=== PATIENT | female | born 1975 | race Caucasian/White ===

== ENCOUNTER 2017-01-02 17:33 | Emergency (ER) | payer SELFPAY ==
[2017-01-02 17:44] VITALS: BP 161/102
== END 2017-01-02 18:28 | disposition home or self-care (01) ==
LOC: ER 17:33
DX: L03.116 Cellulitis of left lower limb (principal); M79.605 Pain in left leg
CPT/HCPCS: 99284

== ENCOUNTER → 2017-06-02 | Outpatient (CLI) | payer BC ==
--- NOTE | 2017-06-02 16:16 | WOMENS IMAGING REPORT ---
EXAM DESCRIPTION: BILAT SCREENING MAMMO W/CAD COMPLETED DATE/TIME: 06/02/2017 2:47 pm REASON FOR STUDY: ROUTINE SCREENING; Z12.31 Z12.31 ENCNTR SCREEN MAMMOGRAM FOR MALIGNANT NEOPLASM O F ELIANA COMPARISON: None. TECHNIQUE: Standard craniocaudal and mediolateral oblique views of each breast recorded using [employer] acquisition. LIMITATIONS: None. FINDINGS: Findings present which are benign by mammographic criteria. No suspicious masses, calcifi cations or architectural distortion. Pertinent benign findings: Benign calcifications. Read with the assistance of CAD. .[facility] - R2 Cenova Version 1.3 .[facility] Imaging - R2 Cenova Version 1.3 .[facility] Imaging - R2 Cenova Version 2.4 .[facility] - R2 Cenova Version 2.4 .[facility] - R2 [employer] Version 9.2 Benign mammographic findings may include one or more of the following: Smooth masses, popcorn/rim/co arse calcifications, asymmetries, post-procedure changes, and lesions with long-standing stability. IMPRESSION: BENIGN MAMMOGRAPHIC FINDINGS. BIRADS 2 BREAST DENSITY: a. The breasts are almost entirely fatty. BIRAD: 2 BENIGN FINDING(S) RECOMMENDATION: ROUTINE SCREENING COMMENT: The patient has been notified of the results by letter per SA requirements. Additional no tification policies are in place for contacting patient with suspicious or incomplete findings. Quality ID #[id number]: The [employer] recommends an annual screening mammogram for women aged 40 years or over. This facility utilizes a reminder system to ensure that all patients receive reminder letters, and/or direct phone calls for appointments. This includes reminders for routine scr eening mammograms, diagnostic mammograms, or other Breast Imaging Interventions when appropriate. Th is patient will be placed in the appropriate reminder system. The [employer] (ACR) has developed recommendations for screening MRI of the breast s in certain patient populations, to be used in conjunction with mammography. Breast MRI surveillanc e may be appropriate for women with more than 20% lifetime risk of developing breast cancer as deter mined by genetic testing, significant family history of the disease, or history of mantle radiation f or Hodgkins Disease. ACR Practice Guidelines 2008. TECHNICAL DOCUMENTATION: FINDING NUMBER: (1) ASSESSMENT: (1) JOB ID: [id number] [email or web address]- All Rights Reserved
== END ==
LOC: WI 14:24
PROVIDERS: ATTEND Nurse Practitioner Family
DX: Z12.31 Encounter for screening mammogram for malignant neoplasm of breast (principal)
CPT/HCPCS: 77067

== ENCOUNTER 2017-06-06 20:31 | Emergency (ER) | payer BC ==
--- NOTE | 2017-06-06 21:18 | ER Document Report ---
ED General - General Chief Complaint: Flank Pain and back pain Stated Complaint: FLANK PAIN Time Seen by Provider: 06/06/17 21:17 Notes: Patient is a 41-year-old female who presents emergency department with a chief complaint of left flank pain with associated left lower quadrant pain. Patient states that this was sudden onset this afternoon described as a sharp stabbing pain that is constant states that she there are no alleviating factors or positions. She denies any urinary urgency, retention, pyuria, hematuria. She denies any urinary frequency. States that her last bowel movement was today and had one yesterday. Denies any constipation or diarrhea. She denies any bright red blood per rectum or dark tarry stools. She denies any vomiting but admits to intermittent nausea. She denies any previous symptoms like this in the past. Denies any history of kidney stones or family history of kidney stones or diverticulitis. Denies any fevers or chills. Denies any allergies Past medical history significant for diabetes on metformin and Lantus, hypertension on Lopressor, Lasix and aspirin. Past surgical history significant for previous hysterectomy Social history denies any tobacco, alcohol or drug use. 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 primary care is with [facility] in [place] TRAVEL OUTSIDE OF THE [place] IN LAST 30 DAYS: No - Related Data Allergies/Adverse Reactions: No Known Allergies Allergy (Verified 06/07/17 01:36) Past Medical History - Social History Smoking Status: Unknown if Ever Smoked Family History: CAD, DM, Hypertension, Other - No family history of aneurysms - Past Medical History Cardiac Medical History: Reports: Hx Hypertension Neurological Medical History: Reports: Hx Migraine - 5 years, Hx Seizures. Denies: Hx Cerebrovascular Accident Endocrine Medical History: Reports: Hx Diabetes Mellitus Type 2 Renal/ Medical History: Denies: Hx Peritoneal Dialysis Past Surgical History: Reports: Hx Hysterectomy - Immunizations Hx Diphtheria, Pertussis, Tetanus Vaccination: Yes Hx Pneumococcal Vaccination: 05/09/14 Review of Systems - Review of Systems Constitutional: No symptoms reported Cardiovascular: No symptoms reported Respiratory: No symptoms reported Gastrointestinal: See HPI Genitourinary: See HPI Female Genitourinary: No symptoms reported Musculoskeletal: No symptoms reported -: Yes All other systems reviewed and negative Physical Exam - Vital signs Vitals: Temp Pulse Resp BP Pulse Ox 97.8 F 63 20 147/98 H 97 06/06/17 20:45 06/06/17 20:45 06/06/17 20:45 06/06/17 20:45 06/06/17 20:45 - Notes Notes: PHYSICAL EXAM GENERAL: Alert, interacts well. HEAD: Normocephalic, atraumatic. LUNGS: Clear to auscultation bilaterally, no wheezes, rales, or rhonchi. No respiratory distress. HEART: Regular rate and rhythm. No murmurs, gallops, or rubs. ABDOMEN: Soft, nondistended, moderate tenderness to palpation of the left lower quadrant. No guarding, rebound, or rigidity.. Bowel sounds present in all 4 quadrants. EXTREMITIES: Moves all 4 extremities spontaneously. No edema, radial and dorsalis pedis pulses 2/4 bilaterally. No cyanosis. NEUROLOGICAL: Alert and oriented x4. Normal speech. PSYCH: Normal affect, normal mood. SKIN: Warm, dry, normal turgor. No rashes or lesions noted. Course - Re-evaluation Re-evalutation: 06/06/17 22:34 Patient is a 5-year-old female who is hemodynamically stable, no acute distress and afebrile. CBC stable without evidence of leukocytosis or anemia. Chemistry stable without evidence of electrolyte abnormalities, elevated LFTs, acute renal failure. Urinalysis stable without evidence of hematuria, UTI. Repeat abdominal exams with left lower quadrant tenderness. Will send for CT abdomen and pelvis with IV contrast 06/07/17 02:42 Transvaginal ultrasound does show evidence of follicular cyst in the left ovary. Discussed results with patient stating that this did not require surgery at this time will discharge home with pain medication and to follow-up with [facility]. Patient given strict return precautions and otherwise stable for discharge home. - Vital Signs Vital signs: Temp Pulse Resp BP Pulse Ox 98.5 F 61 18 128/88 H 97 06/07/17 03:03 06/07/17 03:03 06/07/17 03:03 06/07/17 03:03 06/07/17 03:03 - Laboratory Result Diagrams: 06/06/17 21:30 06/06/17 21:30 Laboratory results interpreted by me: 06/06/17 06/06/17 21:30 21:35 Sodium 135.4 L Glucose 257 H Total Protein 6.2 L Urine Glucose (UA) >=500 H - Diagnostic Test Radiology reviewed: Image reviewed, Reports reviewed Discharge - Discharge Clinical Impression: Ovarian cyst Qualifiers: Laterality: left Qualified Code(s): N83.202 - Unspecified ovarian cyst, left side Condition: Good Disposition: HOME, SELF-CARE Instructions: Use of [id number]-[id number] Ibuprofen ([facility]), Ovarian Cyst ([facility]) Referrals: MAMADOU BARBOSA MD [ACTIVE STAFF] - Follow up as needed
[2017-06-06 21:38] LABS: ABSOLUTE BASOPHILS # (AUTO) 0.1 10^3/uL (0.0-0.2); ABSOLUTE EOSINOPHILS # (AUTO) 0.1 10^3/uL (0.0-0.6); ABSOLUTE LYMPHOCYTES (AUTO) 2.8 10^3/uL (0.5-4.7); ABSOLUTE MONOCYTES (AUTO) 0.7 10^3/uL (0.1-1.4); ABSOLUTE NEUT (AUTO) 6.5 10^3/uL (1.7-8.2); BASOPHILS % (AUTO) 0.8 % (0-2); HEMATOCRIT 42.1 % (36.0-47.0); HEMOGLOBIN 14.8 g/dL (12.0-15.5); LYMPHOCYTES % (AUTO) 27.8 % (13-45); MEAN CORPUSCULAR HEMOGLOBIN 30.8 pg (27.0-33.4); MEAN CORPUSCULAR HGB CONC 35.1 g/dL (32.0-36.0); MEAN CORPUSCULAR VOLUME 88 fl (80-97); MONOCYTES % (AUTO) 6.6 % (3-13); PLATELET COUNT 230 10^3/uL (150-450); RED CELL DISTRIBUTION WIDTH 13.1 % (11.5-14.0); SEGMENTED NEUTROPHILS % (AUTO) 63.8 % (42-78); TOTAL CELLS COUNTED % (AUTO) 100 %; WHITE BLOOD COUNT 10.2 10^3/uL (4.0-10.5)
[2017-06-06] MEDS ORDERED: MORPHINE SULFATE 10 MG/ML INJ IV ONE (21:51)
[2017-06-06 21:52] LABS: APPEARANCE,URINE SLIGHTLY-CLOUDY; BILIRUBIN,URINE NEGATIVE (NEGATIVE); COLOR,URINE YELLOW; GLUCOSE, URINE >=500 mg/dL (NEGATIVE); KETONES,URINE NEGATIVE (NEGATIVE); LEUKOCYTE ESTERASE,URINE NEGATIVE (NEGATIVE); NITRITE,URINE NEGATIVE (NEGATIVE); PROTEIN,URINE NEGATIVE (NEGATIVE); URINE SPECIFIC GRAVITY 1.024; UROBILINOGEN,URINE NEGATIVE mg/dL (<2.0)
[2017-06-06 21:57] LABS: ALANINE AMINOTRANSFERASE 28 U/L (9-52); ALBUMIN 3.8 g/dL (3.5-5.0); ALKALINE PHOSPHATASE 95 U/L (38-126); ANION GAP 7 (5-19); ASPARTATE AMINO TRANSFERASE 15 U/L (14-36); BILIRUBIN,DIRECT 0.2 mg/dL (0.0-0.4); BILIRUBIN,TOTAL 0.4 mg/dL (0.2-1.3); BLOOD UREA NITROGEN 13 mg/dL (7-20); CARBON DIOXIDE 29 mmol/L (22-30); CHLORIDE 99 mmol/L (98-107); GLUCOSE 257 mg/dL (75-110); POTASSIUM 4.2 mmol/L (3.6-5.0); SODIUM 135.4 mmol/L (137-145); TOTAL PROTEIN 6.2 g/dL (6.3-8.2)
[2017-06-06] MEDS ORDERED: KETOROLAC TROMETHAMINE INJ/PF 30 MG/1 ML SDV IV ONE (22:30)
--- NOTE | 2017-06-06 23:32 | RADIOLOGY REPORT (SQ) ---
EXAM DESCRIPTION: CT ABD/PELVIS WITH IV ONLY CLINICAL HISTORY: 41 years Female, LLQ pain COMPARISON: None. TECHNIQUE: 100 mL Isovue-370 IV contrast. Coronal and sagittal reformat. This exam was performed according to our departmental dose-optimization program, which includes automated exposure control, adjustment of the mA and/or kV according to patient size and/or use of iterative reconstruction technique. FINDINGS: No acute findings. No ascites. Moderate hepatic steatosis. Nonspecific prominence of retroperitoneal lymph nodes. Mild subcutaneous soft tissue edema. Mild disc desiccation of the lower thoracic spine. Inferior thorax, gallbladder, pancreas, spleen, adrenals, renal system, gastrointestinal tract, pelvic organs, vasculature, and musculoskeleton appear otherwise unremarkable. IMPRESSION: No acute findings.
[2017-06-07] MEDS ORDERED: MORPHINE SULFATE 10 MG/ML INJ IV ONE ×2 (00:22→01:05)
[2017-06-07 00:57] LABS: RBCS (WET MOUNT) RARE RBCS SEEN; T.VAGINALIS (WET MOUNT) NO TRICHOMONAS SEEN; WBCS (WET MOUNT) 1+ WBCS SEEN; YEAST (WET MOUNT) NO YEAST SEEN
[2017-06-07 02:04] LABS: CHLAM PCR NOT DETECTED (NOT DETECT); GON PCR NOT DETECTED (NOT DETECT)
[2017-06-07] MEDS ORDERED: TRAMADOL HCL 50 MG TABLET PO ONE (02:10)
--- NOTE | 2017-06-07 02:21 | RADIOLOGY REPORT (SQ) ---
EXAM DESCRIPTION: U/S NON OB PEL TV W/DOPPLER CLINICAL HISTORY: 41 years, Female, left pelvic pain COMPARISON: None. TECHNIQUE: Transvaginal. LIMITATIONS: Body habitus. FINDINGS: 3 x 2.5 x 3 cm left ovary appears within normal limits; venous flow and trace arterial flow demonstrated. The left ovary contains a 2.5 x 2.2 x 1.5 cm dominant cystic follicle for which no follow-up imaging is recommended. Uterus is surgically absent. Right ovary is not visualized. No free fluid. IMPRESSION: No acute findings. Hysterectomy. Right ovary is not visualized.
[2017-06-07] MEDS ORDERED: HYDROCODONE/ACETAMINOPHEN 5-325 MG (6 TAB/ER DISP) PO PRN (02:54)
[2017-06-07 03:08] VITALS: BP 128/88
== END 2017-06-07 03:05 | disposition home or self-care (01) ==
LOC: ER 20:31
DX: N83.202 Unspecified ovarian cyst, left side (principal); M54.9 Dorsalgia, unspecified; R10.32 Left lower quadrant pain; R11.0 Nausea
CPT/HCPCS: 96376; 99284; 96374; 96375; 36415; 87210; 83690; 84703; 85025; 80053; 81001; 87491; 87591; 76830; 93976; 74177; J1885; J2270 ×2

== ENCOUNTER 2017-09-12 22:41 | Emergency (ER) | payer SELFPAY ==
[2017-09-12 22:54] VITALS: BP 168/111
--- NOTE | 2017-09-13 00:19 | ER Document Report ---
HPI - HPI Pain Level: 5 Notes: Patient is a 41-year-old female with a history of hypertension and diabetes who presents to the ED complaining of left lower back pain 1-2 days. Patient is not aware of any injury or precipitating event. Patient states that the pain does not radiate. Patient states that it worsens with sitting or standing for prolonged periods or twisting motions of the trunk. Patient states that she has chronic lower leg pains near her ankles anteriorly when her edema starts to act up on her. She does not have any new leg pains aside from normal. Patient does take Lasix daily. She is eating and drinking without any difficulties. She is urinating normally and having normal bowel movements. She has not had any surgeries or procedures to her lower back. She denies any smoking or IV drug use. Denies any headache, fever, URI, sore throat, chest pain, palpitations, syncope, cough, shortness of breath, wheeze, dyspnea, abdominal pain, nausea/vomiting/diarrhea, urinary retention, dysuria, hematuria, loss of control of bowel or bladder, numbness/tingling, saddle anesthesia, muscle paralysis/weakness, or rash. No prolonged immobilization, hormone use, prev dvt /pe, recent surgery/trauma. - ROS Systems Reviewed and Negative: Yes All other systems reviewed and negative - REPRODUCTIVE Reproductive: DENIES: : Past Medical History - Social History Smoking Status: Never Smoker Family History: CAD, DM, Hypertension, Other - No family history of aneurysms - Past Medical History Cardiac Medical History: Reports: Hx Hypertension Neurological Medical History: Reports: Hx Migraine - 5 years, Hx Seizures. Denies: Hx Cerebrovascular Accident Endocrine Medical History: Reports: Hx Diabetes Mellitus Type 2 Renal/ Medical History: Denies: Hx Peritoneal Dialysis Past Surgical History: Reports: Hx Hysterectomy - Immunizations Hx Diphtheria, Pertussis, Tetanus Vaccination: Yes Hx Pneumococcal Vaccination: 05/09/14 Vertical Provider Document - CONSTITUTIONAL Agree With Documented VS: Yes Notes: PHYSICAL EXAMINATION: GENERAL: Well-appearing, well-nourished and in no acute distress. Morbid obesity. LUNGS: Breath sounds clear to auscultation bilaterally and equal. No wheezes rales or rhonchi. HEART: Regular rate and rhythm without murmurs, rubs, gallops. ABDOMEN: Soft, nontender, nondistended abdomen. No guarding, no rebound. No masses appreciated. Normal bowel sounds present. No CVA tenderness bilaterally. No pulsatile mass Musculoskeletal: LE's b/l: FROM to passive/active. Strength 5+/5. No deficits noted. No bony tenderness of extremities. Back: FROM to passive/active. Strength 5+/5. No vertebral point tenderness, stepoffs, or deformities. No other bony tenderness, erythema, swelling, or ecchymosis. SLR negative b/l. + mild tenderness to the L-paraspinal mm left. Mild spasming. + left SI jt tenderness. No foot drop Extremities: 2+ pitting edema from ankles to 1+ proximally to the inferior knee area b/l. Peripheral pulses 2+. Capillary refill less than 2 seconds. No calf tenderness or asymmetry of the legs. NEUROLOGICAL: Normal speech, ataxic gait. Normal sensory, motor exams. Reflexes 2+ b/l. PSYCH: Normal mood, normal affect. SKIN: Warm, Dry, normal turgor, no rashes or lesions noted. - INFECTION CONTROL TRAVEL OUTSIDE OF THE [place] IN LAST 30 DAYS: No Course - Re-evaluation Re-evalutation: 09/13/17 01:33 Due to technical difficulties with the radiologist department, patient does not want to wait for her imaging results. Patient would like to call back tomorrow for her results. I did review the risk and benefit of her leaving prior to her imaging results. Patient verbalized understanding and still wants to leave prior to the results. Patient is an afebrile, well-hydrated, 41-year-old female who presents to the ED with left lower back pain, suspect back strain. Vitals are acceptable. PE is otherwise unremarkable for any focal neurological deficits, neurovascular compromise, obvious tendon/ligament rupture, obvious fracture/dislocation. Patient has no tachycardia, tachypnea, or hypoxia. She has no red flag symptoms at this time. Toradol and Tylenol given today. I will send her home with a prescription for naproxen and baclofen. Conservative measures otherwise for symptoms. Recheck with your PCM in 2-3 days. Consider consult orthopedic/ physical therapy. Return to the ED with any worsening/concerning symptoms otherwise as reviewed discharge. Patient is in agreement. - Vital Signs Vital signs: Temp Pulse Resp BP Pulse Ox 98.3 F 78 18 168/111 H 99 09/12/17 22:52 09/12/17 22:52 09/12/17 22:52 09/12/17 22:52 09/12/17 22:52 Discharge - Discharge Clinical Impression: Low back pain Qualifiers: Chronicity: acute Back pain laterality: left Sciatica presence: without sciatica Qualified Code(s): M54.5 - Low back pain Condition: Stable Disposition: HOME, SELF-CARE Instructions: Low Back Pain ([facility]), Stretching Exercises for the Back ([facility]) Additional Instructions: Call tomorrow after 2pm for your imaging results. Rest, Ice, Compression, Elevation Tylenol/ibuprofen as needed Light stretches daily Strength exercises as able Moist heat and massage may help F/u with your PCP in 3-5 days for a recheck Consider consult(s) with Orthopedics/physical therapy for ongoing/worsening symptoms Return to the ED with any worsening symptoms and/or development of fever, headache, chest pain, palpitations, syncope, shortness of breath, trouble breathing, abdominal pain, n/v/d, blood in stool/urine, loss of control of bowel /bladder, urinary retention, muscle weakness/paralysis, saddle anesthesia, numbness/tingling, or other worsening symptoms that are concerning to you. Prescriptions: Baclofen [Baclofen 10 mg Tablet] 5 - 10 mg PO BID PRN #10 tablet PRN Reason: Naproxen 500 mg PO BID PRN #20 tablet PRN Reason: Forms: Elevated Blood Pressure Referrals: CLAIR COELHO PA-C [Primary Care Provider] - 09/16/17 [facility] [Provider Group] - Follow up as needed
[2017-09-13] MEDS: KETOROLAC TROMETHAMINE INJ/PF 30 MG/1 ML SDV IM ONE (00:21)
[2017-09-13] MEDS ORDERED: ACETAMINOPHEN 325 MG TABLET PO ONE (00:43)
--- NOTE | 2017-09-13 04:20 | RADIOLOGY REPORT (SQ) ---
EXAM DESCRIPTION: L SPINE WHOLE COMPLETED DATE/TIME: 09/13/2017 12:54 am REASON FOR STUDY: low back pain, left COMPARISON: None. NUMBER OF VIEWS: Five views including obliques. TECHNIQUE: AP, lateral, oblique, and sacral radiographic images acquired of the lumbar spine. LIMITATIONS: None. FINDINGS: MINERALIZATION: Normal. SEGMENTATION: Normal. No transitional anatomy. ALIGNMENT: Normal. VERTEBRAE: Maintained height. No fracture or worrisome bone lesion. DISCS: Minimal degenerative changes. No disc space narrowing. POSTERIOR ELEMENTS: Pedicles and facets are intact. No pars defect or posterior arch defects. HARDWARE: None in the spine. PARASPINAL SOFT TISSUES: Normal. PELVIS: Intact as visualized. No fractures or worrisome bone lesions. SI joints intact. OTHER: No other significant finding. IMPRESSION: No significant finding. TECHNICAL DOCUMENTATION: JOB ID: [id number] [employer]- All Rights Reserved Reading location - IP/workstation name: [email or web address]
== END 2017-09-13 01:43 | disposition home or self-care (01) ==
LOC: ER 22:41
DX: M54.5 Low back pain (principal); R25.2 Cramp and spasm; R60.0 Localized edema; I10 Essential (primary) hypertension; E11.9 Type 2 diabetes mellitus without complications; Z79.899 Other long term (current) drug therapy
CPT/HCPCS: 99283; 96372; 72110; J1885

== ENCOUNTER 2017-10-03 23:18 | Emergency (ER) | payer BC ==
[2017-10-04 00:44] VITALS: BP 184/126
[2017-10-04] MEDS ORDERED: PROMETHAZINE HCL 25 MG TABLET PO ONE (01:05)
[2017-10-04] MEDS ORDERED: MORPHINE SULFATE IR 15 MG TABLET PO ONE (01:05)
--- NOTE | 2017-10-04 01:06 | ER Document Report ---
ED GI/ - General Chief Complaint: Abdominal Pain Stated Complaint: SIDE PAIN Time Seen by Provider: 10/04/17 00:57 Notes: Patient is a 41-year-old female comes emergency department for chief complaint of abdominal pain, she states that she feels like start in her mid to lower back and then wrap around to the front of her abdomen and the lower part of her abdomen. This is worse on the left. She denies nausea or vomiting, fever or chills, had a normal bowel movement today, denies vaginal bleeding or discharge. She has had a partial hysterectomy. She denies any other surgeries. Past medical history of hypertension, insulin-dependent diabetes, anxiety, chronic back pain, chronic lower extremity edema, obesity. TRAVEL OUTSIDE OF THE [place] IN LAST 30 DAYS: No - Related Data Allergies/Adverse Reactions: No Known Allergies Allergy (Verified 06/07/17 01:36) Past Medical History - General Information source: Patient, Relative - Social History Smoking Status: Never Smoker Frequency of alcohol use: None Drug Abuse: None Lives with: Family Family History: CAD, DM, Hypertension, Other - No family history of aneurysms - Past Medical History Cardiac Medical History: Reports: Hx Hypertension Neurological Medical History: Reports: Hx Migraine - 5 years, Hx Seizures. Denies: Hx Cerebrovascular Accident Endocrine Medical History: Reports: Hx Diabetes Mellitus Type 2 Renal/ Medical History: Denies: Hx Peritoneal Dialysis Past Surgical History: Reports: Hx Hysterectomy - Immunizations Hx Diphtheria, Pertussis, Tetanus Vaccination: Yes Hx Pneumococcal Vaccination: 05/09/14 Review of Systems - Review of Systems Constitutional: No symptoms reported EENT: No symptoms reported Cardiovascular: No symptoms reported Respiratory: No symptoms reported Gastrointestinal: See HPI Genitourinary: No symptoms reported Female Genitourinary: No symptoms reported Musculoskeletal: See HPI Skin: No symptoms reported Hematologic/Lymphatic: No symptoms reported Neurological/Psychological: No symptoms reported Physical Exam - Vital signs Vitals: BP 184/126 H 10/04/17 00:40 - Notes Notes: GENERAL: Alert, interacts well. No acute distress. HEAD: Normocephalic, atraumatic. EYES: Pupils equal, round, and reactive to light. Extraocular movements intact. ENT: Oral mucosa moist, tongue midline. NECK: Full range of motion. Supple. Trachea midline. LUNGS: Clear to auscultation bilaterally, no wheezes, rales, or rhonchi. No respiratory distress. HEART: Regular rate and rhythm. No murmur ABDOMEN: Mildly distended abdomen. Mild generalized tenderness, nonspecific, no guarding, no rebound tenderness EXTREMITIES: Moves all 4 extremities spontaneously. No edema, normal radial and dorsalis pedis pulses bilaterally. No cyanosis. BACK: no cervical, thoracic, lumbar midline tenderness. No saddle anesthesia, normal distal neurovascular exam. No CVA tenderness. NEUROLOGICAL: Alert and oriented x3. Normal speech. [cranial nerves II through XII grossly intact]. PSYCH: Normal affect, normal mood. SKIN: Warm, dry, normal turgor. No rashes or lesions noted. Course - Re-evaluation Re-evalutation: Patient with generalized abdominal tenderness, no guarding, unremarkable back exam, no neurological deficits, no reported neurological symptoms. Vital signs show hypertension but are otherwise unremarkable. CBC unremarkable, chemistry unremarkable, lipase not elevated, urine shows dehydration but no concerning findings. There is mild hyperglycemia but no acidosis. X-ray with large amount of retained stool per my read, no obstructive findings, no acute findings per radiologist. Patient has recently been taking narcotic pain medications at home for her back. Suspect constipation secondary to this. Based on her laboratory and physical examination I have very low suspicion of acute abdomen at this time. Does not appear to be infectious etiology either. Discussed better monitoring of her blood sugar, blood pressure follow-up with primary, treatment for her abdomen, return precautions in detail. Patient and significant other state understanding and agreement. - Vital Signs Vital signs: Temp Pulse Resp BP Pulse Ox 98.2 F 66 18 176/107 H 99 10/04/17 00:42 10/04/17 00:42 10/04/17 00:42 10/04/17 00:42 10/04/17 00:42 - Laboratory Result Diagrams: 10/04/17 02:30 10/04/17 02:30 Laboratory results interpreted by me: 10/04/17 10/04/17 02:30 02:35 Glucose 254 H AST 11 L Total Protein 6.1 L Urine Glucose (UA) >=500 H Discharge - Discharge Clinical Impression: Abdominal pain Qualifiers: Abdominal location: generalized Qualified Code(s): R10.84 - Generalized abdominal pain Condition: Stable Disposition: HOME, SELF-CARE Additional Instructions: Your workup shows mild dehydration and slightly elevated blood sugars. Increase your hydration and continue your medications for diabetes. Your imaging shows large amount of retained stool with some distention of the colon, this is probably the cause of your discomfort. I recommend that you drink half of the bottle given to you tonight, wait about 4-6 hours and then drinking the other half, if no results begin taking the Colace as directed, increase fiber in your diet, this should result in several large bowel movements and resolution of your pain. Take the Phenergan if needed for nausea , the Bentyl if needed for pain. Follow-up with primary care. Return for any concerning symptoms including vomiting, severe abdominal pain, fever, or any other concerning or worsening symptoms. Prescriptions: Dicyclomine HCl [Bentyl 20 mg Tablet] 20 mg PO QID PRN #20 tablet PRN Reason: Docusate Sodium [Colace 100 mg Capsule] 100 mg PO ASDIR PRN #30 capsule PRN Reason: Promethazine HCl [Phenergan 25 mg Tablet] 1 - 2 tab PO Q6H PRN #15 tablet PRN Reason: Forms: Return to Work, Elevated Blood Pressure Referrals: CLARI COELHO PA-C [Primary Care Provider] - Follow up as needed
[2017-10-04 03:04] LABS: ABSOLUTE EOSINOPHILS # (AUTO) 0.1 10^3/uL (0.0-0.6); ABSOLUTE LYMPHOCYTES (AUTO) 2.5 10^3/uL (0.5-4.7); ABSOLUTE MONOCYTES (AUTO) 0.6 10^3/uL (0.1-1.4); BASOPHILS % (AUTO) 0.2 % (0-2); EOSINOPHILS % (AUTO) 1.8 % (0-6); HEMATOCRIT 43.1 % (36.0-47.0); HEMOGLOBIN 14.8 g/dL (12.0-15.5); LYMPHOCYTES % (AUTO) 34.2 % (13-45); MEAN CORPUSCULAR HEMOGLOBIN 30.3 pg (27.0-33.4); MEAN CORPUSCULAR HGB CONC 34.3 g/dL (32.0-36.0); MEAN CORPUSCULAR VOLUME 88 fl (80-97); MONOCYTES % (AUTO) 8.5 % (3-13); PLATELET COUNT 201 10^3/uL (150-450); RED BLOOD COUNT 4.88 10^6/uL (3.72-5.28); RED CELL DISTRIBUTION WIDTH 13.4 % (11.5-14.0); SEGMENTED NEUTROPHILS % (AUTO) 55.3 % (42-78); TOTAL CELLS COUNTED % (AUTO) 100 %; WHITE BLOOD COUNT 7.3 10^3/uL (4.0-10.5)
[2017-10-04 03:20] LABS: ALANINE AMINOTRANSFERASE 30 U/L (9-52); ALBUMIN 3.5 g/dL (3.5-5.0); ALKALINE PHOSPHATASE 88 U/L (38-126); ANION GAP 10 (5-19); ASPARTATE AMINO TRANSFERASE 11 U/L (14-36); BILIRUBIN,DIRECT 0.3 mg/dL (0.0-0.4); BILIRUBIN,TOTAL 0.3 mg/dL (0.2-1.3); BLOOD UREA NITROGEN 12 mg/dL (7-20); CALCIUM 8.5 mg/dL (8.4-10.2); CARBON DIOXIDE 28 mmol/L (22-30); CHLORIDE 103 mmol/L (98-107); GLUCOSE 254 mg/dL (75-110); POTASSIUM 4.1 mmol/L (3.6-5.0); SODIUM 141.2 mmol/L (137-145); TOTAL PROTEIN 6.1 g/dL (6.3-8.2)
[2017-10-04 03:40] LABS: APPEARANCE,URINE CLEAR; BILIRUBIN,URINE NEGATIVE (NEGATIVE); COLOR,URINE STRAW; GLUCOSE, URINE >=500 mg/dL (NEGATIVE); KETONES,URINE NEGATIVE (NEGATIVE); LEUKOCYTE ESTERASE,URINE NEGATIVE (NEGATIVE); NITRITE,URINE NEGATIVE (NEGATIVE); PROTEIN,URINE NEGATIVE (NEGATIVE); UROBILINOGEN,URINE NEGATIVE mg/dL (<2.0)
--- NOTE | 2017-10-04 03:59 | RADIOLOGY REPORT (SQ) ---
EXAM DESCRIPTION: Acute abdominal series CLINICAL HISTORY: sharp mid abd pain, hx surgery COMPARISON: None. FINDINGS: Single view of the chest with upright and spine views of the abdomen. The cardiomediastinal silhouette has normal size and contour. No consolidation, pneumothorax, or pleural effusion. No definite free intraperitoneal air. Nonobstructive bowel gas pattern. No acute osseous abnormalities. No abnormal calcifications. No definite organomegaly. IMPRESSION: 1. No acute pulmonary process. Nonobstructive bowel gas pattern.
[2017-10-04] MEDS ORDERED: MAGNESIUM CITRATE 296 ML BOTTLE PO ONE (04:10)
== END 2017-10-04 04:30 | disposition home or self-care (01) ==
LOC: ER 23:18
DX: R10.84 Generalized abdominal pain (principal); M54.5 Low back pain; R10.30 Lower abdominal pain, unspecified; E11.9 Type 2 diabetes mellitus without complications; Z79.4 Long term (current) use of insulin; Z90.710 Acquired absence of both cervix and uterus
CPT/HCPCS: 99284; 36415; 83690; 85025; 81025; 80053; 81001; 74022; J3490

== ENCOUNTER 2017-12-29 09:24 | Emergency (ER) | payer BC ==
--- NOTE | 2017-12-29 09:58 | ER Document Report ---
ED Medical Screen (RME) - General Chief Complaint: Cold Symptoms Stated Complaint: COLD Time Seen by Provider: 12/29/17 09:42 Mode of Arrival: Ambulatory Information source: Patient Notes: Patient presents with a multitude of complaints. Patient complains of sore throat pain with ear pain and difficulty breathing. Patient additionally reports left-sided and left flank abdominal pain for the past 5 days. Patient does report constipation symptoms as well and states she took 2 bottles of magnesium citrate without any improvement of her symptoms. Patient does report some intermittent palpitations. Patient states that around 30 minutes ago she started to have complete upper lip numbness and dizziness. Patient states that she has had numbness like this to her lip before, before having a seizure. I have greeted and performed a rapid initial assessment of this patient. A comprehensive ED assessment and evaluation of the patient, analysis of test results and completion of the medical decision making process will be conducted by additional ED providers. TRAVEL OUTSIDE OF THE [place] IN LAST 30 DAYS: No - Related Data Allergies/Adverse Reactions: No Known Allergies Allergy (Verified 12/29/17 09:27) Past Medical History - Social History Chew tobacco use (# tins/day): No Frequency of alcohol use: None Drug Abuse: None - Past Medical History Cardiac Medical History: Reports: Hx Hypertension Neurological Medical History: Reports: Hx Migraine - 5 years, Hx Seizures. Denies: Hx Cerebrovascular Accident Endocrine Medical History: Reports: Hx Diabetes Mellitus Type 2 Renal/ Medical History: Denies: Hx Peritoneal Dialysis Past Surgical History: Reports: Hx Hysterectomy - Immunizations Hx Diphtheria, Pertussis, Tetanus Vaccination: Yes Physical Exam - Vital signs Vitals: Temp Pulse Resp BP Pulse Ox 98.5 F 69 20 178/119 H 99 12/29/17 09:28 12/29/17 09:28 12/29/17 09:28 12/29/17 09:28 12/29/17 09:28 - Respiratory Respiratory status: No respiratory distress Chest status: Nontender Breath sounds: Nonproductive cough Course - Vital Signs Vital signs: Temp Pulse Resp BP Pulse Ox 98.5 F 69 20 178/119 H 99 12/29/17 09:28 12/29/17 09:28 12/29/17 09:28 12/29/17 09:28 12/29/17 09:28 Doctor's Discharge - Discharge Referrals: BUNDLE,CLAIR, PA-C [Primary Care Provider] - Follow up as needed
[2017-12-29] MEDS ORDERED: MECLIZINE HCL 25 MG TABLET PO ONE (10:34)
[2017-12-29 10:50] LABS: MEAN CORPUSCULAR VOLUME 88 fl (80-97)
[2017-12-29 10:59] LABS: ALANINE AMINOTRANSFERASE 40 U/L (9-52); ALBUMIN 3.9 g/dL (3.5-5.0); ALKALINE PHOSPHATASE 92 U/L (38-126); ANION GAP 10 (5-19); ASPARTATE AMINO TRANSFERASE 29 U/L (14-36); BILIRUBIN,DIRECT 0.3 mg/dL (0.0-0.4); BILIRUBIN,TOTAL 0.6 mg/dL (0.2-1.3); BLOOD UREA NITROGEN 14 mg/dL (7-20); CALCIUM 8.9 mg/dL (8.4-10.2); CARBON DIOXIDE 26 mmol/L (22-30); CHLORIDE 105 mmol/L (98-107); GLUCOSE 216 mg/dL (75-110); POTASSIUM 4.6 mmol/L (3.6-5.0); SODIUM 141.4 mmol/L (137-145)
[2017-12-29 11:00] LABS: ABSOLUTE EOSINOPHILS # (AUTO) 0.1 10^3/uL (0.0-0.6); ABSOLUTE LYMPHOCYTES (AUTO) 1.4 10^3/uL (0.5-4.7); ABSOLUTE MONOCYTES (AUTO) 0.5 10^3/uL (0.1-1.4); ABSOLUTE NEUT (AUTO) 4.2 10^3/uL (1.7-8.2); BASOPHILS % (AUTO) 0.6 % (0-2); EOSINOPHILS % (AUTO) 1.1 % (0-6); HEMATOCRIT 42.1 % (36.0-47.0); HEMOGLOBIN 14.6 g/dL (12.0-15.5); LYMPHOCYTES % (AUTO) 22.4 % (13-45); MEAN CORPUSCULAR HEMOGLOBIN 30.3 pg (27.0-33.4); MEAN CORPUSCULAR HGB CONC 34.6 g/dL (32.0-36.0); MONOCYTES % (AUTO) 8.6 % (3-13); PLATELET COUNT 233 10^3/uL (150-450); RED CELL DISTRIBUTION WIDTH 13.4 % (11.5-14.0); SEGMENTED NEUTROPHILS % (AUTO) 67.3 % (42-78); TOTAL CELLS COUNTED % (AUTO) 100 %; WHITE BLOOD COUNT 6.2 10^3/uL (4.0-10.5)
[2017-12-29] MEDS ORDERED: LEVETIRACETAM 500 MG TABLET PO ONE ×2 (11:01→11:17)
[2017-12-29 11:07] LABS: APPEARANCE,URINE CLEAR; BILIRUBIN,URINE NEGATIVE (NEGATIVE); COLOR,URINE YELLOW; GLUCOSE, URINE 50 mg/dL (NEGATIVE); KETONES,URINE NEGATIVE (NEGATIVE); LEUKOCYTE ESTERASE,URINE NEGATIVE (NEGATIVE); NITRITE,URINE NEGATIVE (NEGATIVE); PROTEIN,URINE NEGATIVE (NEGATIVE); UROBILINOGEN,URINE NEGATIVE mg/dL (<2.0)
--- NOTE | 2017-12-29 11:07 | ER Document Report ---
ED General - General Chief Complaint: Cold Symptoms Stated Complaint: COLD Time Seen by Provider: 12/29/17 09:42 Mode of Arrival: Ambulatory TRAVEL OUTSIDE OF THE [place] IN LAST 30 DAYS: No - HPI Patient complains to provider of: Multiple complaints Onset: This morning Onset/Duration: Gradual Quality of pain: Achy Severity: Mild Pain Level: 2 Associated symptoms: Body/muscle aches, Productive cough, Nausea, Sore throat Exacerbated by: Denies Relieved by: Denies Similar symptoms previously: Yes Recently seen / treated by doctor: No Notes: Patient is a 42-year-old female presenting to the emergency room today with multiple complaints including sore throat with cough productive of greenish phlegm, nausea, constipation 5 days with no relief after taking magnesium citrate yesterday, left flank pain, and tingling sensation of her upper lip consistent with warning signs of having a seizure in the past, patient has not been on her seizure medication for at least the past year stating that her neurologist went out of business and she has not found a new one yet, she denies any vomiting, no fevers, no known sick contacts, she has not had a seizure in over a year despite not being on her medications, prior to her developing constipation she did have multiple episodes of loose runny stools, she has been eating well and drinking fluids at her baseline - Related Data Allergies/Adverse Reactions: No Known Allergies Allergy (Verified 12/29/17 09:27) Past Medical History - General Information source: Patient - Social History Smoking Status: Unknown if Ever Smoked Chew tobacco use (# tins/day): No Frequency of alcohol use: None Drug Abuse: None Family History: CAD, DM, Hypertension, Other - No family history of aneurysms Patient has suicidal ideation: No Patient has homicidal ideation: No - Past Medical History Cardiac Medical History: Reports: Hx Hypertension Neurological Medical History: Reports: Hx Migraine - 5 years, Hx Seizures. Denies: Hx Cerebrovascular Accident Endocrine Medical History: Reports: Hx Diabetes Mellitus Type 2 Renal/ Medical History: Denies: Hx Peritoneal Dialysis Past Surgical History: Reports: Hx Hysterectomy - Immunizations Hx Diphtheria, Pertussis, Tetanus Vaccination: Yes Hx Pneumococcal Vaccination: 05/09/14 Review of Systems - Review of Systems Constitutional: No symptoms reported EENT: See HPI Cardiovascular: No symptoms reported Respiratory: No symptoms reported Gastrointestinal: See HPI Genitourinary: No symptoms reported Female Genitourinary: No symptoms reported Musculoskeletal: No symptoms reported Skin: No symptoms reported Hematologic/Lymphatic: No symptoms reported Neurological/Psychological: See HPI -: Yes All other systems reviewed and negative Physical Exam - Vital signs Vitals: Temp Pulse Resp BP Pulse Ox 98.5 F 69 20 178/119 H 99 12/29/17 09:28 12/29/17 09:28 12/29/17 09:28 12/29/17 09:28 12/29/17 09:28 Interpretation: Hypertensive - General General appearance: Appears well, Alert In distress: None - HEENT Head: Normocephalic, Atraumatic Eyes: Normal Conjunctiva: Normal Extraocular movements intact: Yes Pupils: PERRL Pharynx: Erythema. No: Exudate, Tonsillar hypertrophy Neck: Normal - Respiratory Respiratory status: No respiratory distress Chest status: Nontender Breath sounds: Normal Chest palpation: Normal - Cardiovascular Rhythm: Regular Heart sounds: Normal auscultation Murmur: No - Abdominal Inspection: Morbidly Obese Distension: No distension Bowel sounds: Normal Tenderness: Nontender Organomegaly: No organomegaly - Back Back: Normal, Nontender - Extremities General upper extremity: Normal inspection, Nontender, Normal color, Normal ROM , Normal temperature General lower extremity: Nontender, Normal ROM, Normal temperature, Normal weight bearing. No: Danuta's sign Notes: Bilateral lower extremity discoloration consistent with peripheral vascular disease, left greater than right - Neurological Neuro grossly intact: Yes Cognition: Normal Orientation: AAOx4 Leona Coma Scale Eye Opening: Spontaneous [place] Coma Scale Verbal: Oriented [place] Coma Scale Motor: Obeys Commands [place] Coma Scale Total: 15 Speech: Normal Motor strength normal: LUE, RUE, LLE, RLE Sensory: Normal - Psychological Associated symptoms: Normal affect, Normal mood - Skin Skin Temperature: Warm Skin Moisture: Dry Skin Color: Normal Course - Re-evaluation Re-evalutation: 12/29/17 11:36 Patient with symptoms of viral upper respiratory illness, also concerned about seizure predrome, she has been off of her medications for at least the past year secondary to her previous neurologist retiring and she has not yet found another one, she was given a dose of Keppra in the emergency department, she does report feeling much better and ready to be discharged, patient will be discharged with instructions for follow-up and advised to return if symptoms worsen, patient acknowledges understanding and agreement with this plan - Vital Signs Vital signs: Temp Pulse Resp BP Pulse Ox 97.7 F 64 19 147/91 H 97 12/29/17 12:02 12/29/17 12:02 12/29/17 12:02 12/29/17 12:02 12/29/17 12:02 - Laboratory Result Diagrams: 12/29/17 10:29 12/29/17 10:29 Laboratory results interpreted by me: 12/29/17 12/29/17 10:29 10:30 Glucose 216 H Urine Glucose (UA) 50 H - Diagnostic Test Radiology reviewed: Image reviewed, Reports reviewed Discharge - Discharge Clinical Impression: Seizure disorder, Viral upper respiratory illness Constipation Qualifiers: Constipation type: unspecified constipation type Qualified Code(s): K59.00 - Constipation, unspecified Condition: Stable Disposition: HOME, SELF-CARE Instructions: Neurologist, Seizure, 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 Return to the emergency room immediately if symptoms worsen or any additional concerns. Prescriptions: Docusate Sodium [Colace 100 mg Capsule] 100 mg PO BID #60 capsule Levetiracetam [Keppra 500 mg Tablet] 500 mg PO Q12 #60 tablet Polyethylene Glycol 3350 [Miralax Powder 17 Gm/Packet] 17 gm PO DAILY #30 powd.pack Forms: Return to Work Referrals: CLAIR COELHO PA-C [Primary Care Provider] - Follow up as needed
--- NOTE | 2017-12-29 11:12 | RADIOLOGY REPORT (SQ) ---
EXAM DESCRIPTION: ACUTE ABDOMEN SERIES COMPLETED DATE/TIME: 12/29/2017 10:53 am REASON FOR STUDY: cough, diff breathing, constipation, L side abd pa COMPARISON: None. NUMBER OF VIEWS: Three views. TECHNIQUE: Frontal chest, supine abdomen and upright/decubitus abdomen radiographic images acquired. LIMITATIONS: None. FINDINGS: CHEST: Lungs clear of infiltrates. FREE AIR: None. No abnormal gas collections. BOWEL GAS PATTERN: Nonobstructive pattern. No dilated loops or air fluid levels. CALCIFICATIONS: No suspicious calcifications. HARDWARE: None in the abdomen. SOFT TISSUES: No gross mass or suggestion of organomegaly. BONES: No acute fracture. No worrisome bone lesions. OTHER: No other significant finding. IMPRESSION: NO RADIOGRAPHIC EVIDENCE FOR ACUTE ABDOMINAL DISEASE. TECHNICAL DOCUMENTATION: JOB ID: [id number] [employer]- All Rights Reserved Reading location - IP/workstation name: [email or web address]
[2017-12-29] MEDS ORDERED: MECLIZINE HCL 25 MG TABLET ONE ×2 (11:15→11:16)
[2017-12-29] MEDS ORDERED: DIPH/PERTUSS(ACELL)/TETANUS VAC/PF 0.5 ML SYR (>=10YO) IM ONE (11:24)
[2017-12-29 12:03] VITALS: BP 147/91
--- NOTE | 2017-12-30 09:00 | EKG REPORT ---
SEVERITY:- ABNORMAL ECG - SINUS RHYTHM LVH BY VOLTAGE NONSPECIFIC T ABNORMALITIES, INFERIOR LEADS : Confirmed by: Elly Richter 30-Dec-2017 08:59:28
== END 2017-12-29 12:02 | disposition home or self-care (01) ==
LOC: ER 09:24
DX: J06.9 Acute upper respiratory infection, unspecified (principal); B97.89 Other viral agents as the cause of diseases classified elsewhere; K59.00 Constipation, unspecified; G40.909 Epilepsy, unspecified, not intractable, without status epilepticus; T50.906A Underdosing of unspecified drugs, medicaments and biological substances, initial encounter; Z91.128 Patient's intentional underdosing of medication regimen for other reason; Z91.14 Patient's other noncompliance with medication regimen; R05 Cough; R11.0 Nausea; J02.9 Acute pharyngitis, unspecified; R10.9 Unspecified abdominal pain; R20.2 Paresthesia of skin; I10 Essential (primary) hypertension; E11.9 Type 2 diabetes mellitus without complications
CPT/HCPCS: 36415; 74022; 80053; 81001; 83735; 84443; 84703; 85025; 87070; 87880; 93005; 93010; 99284

== ENCOUNTER 2018-04-26 19:24 | Emergency (ER) | payer BC ==
[2018-04-26] MEDS ORDERED: NORMAL SALINE 1000 ML 1,000 ML IV ONE (20:08)
--- NOTE | 2018-04-26 20:11 | ER Document Report ---
ED Medical Screen (RME) - General Chief Complaint: Low Back Pain Stated Complaint: BACK PAIN Time Seen by Provider: 04/26/18 20:00 Mode of Arrival: Ambulatory Information source: Patient Notes: 42-year-old female presented to ED for complaint of left lower abdominal pain with nausea and vomiting since this morning. She states she does have some pain in the left lower back also. Patient has had hysterectomy. Patient denies any fevers. Patient has a history of high blood pressure migraines diabetes type 2. Patient is alert and oriented respirations regular and unlabored speaking in fu ll sentences. Patient is able to walk with a steady gait. Patient is very obese. I have greeted and performed a rapid initial assessment of this patient. A comprehensive ED assessment and evaluation of the patient, analysis of test results and completion of medical decision making process will be conducted by an additional ED providers. TRAVEL OUTSIDE OF THE [place] IN LAST 30 DAYS: No - HPI Onset: This morning Onset/Duration: Gradual, Worse Quality of pain: Sharp Severity: Severe Pain Level: 5 - Related Data Allergies/Adverse Reactions: No Known Allergies Allergy (Verified 12/29/17 09:27) Past Medical History - Past Medical History Cardiac Medical History: Reports: Hx Hypertension Neurological Medical History: Reports: Hx Migraine - 5 years, Hx Seizures. Denies: Hx Cerebrovascular Accident Endocrine Medical History: Reports: Hx Diabetes Mellitus Type 2 Renal/ Medical History: Denies: Hx Peritoneal Dialysis Past Surgical History: Reports: Hx Hysterectomy - Immunizations Hx Diphtheria, Pertussis, Tetanus Vaccination: Yes Physical Exam - Vital signs Vitals: Temp Pulse Resp BP Pulse Ox 97.3 F 73 17 151/111 H 99 04/26/18 19:51 04/26/18 19:51 04/26/18 19:51 04/26/18 19:51 04/26/18 19:51 Course - Vital Signs Vital signs: Temp Pulse Resp BP Pulse Ox 97.3 F 73 17 151/111 H 99 04/26/18 19:51 04/26/18 19:51 04/26/18 19:51 04/26/18 19:51 04/26/18 19:51 Doctor's Discharge - Discharge Referrals: CLAIR COELHO PA-C [Primary Care Provider] - Follow up as needed
[2018-04-26] MEDS ORDERED: KETOROLAC TROMETHAMINE INJ/PF 30 MG/1 ML SDV IV ONE (20:26)
[2018-04-26 20:53] LABS: ABSOLUTE EOSINOPHILS # (AUTO) 0.1 10^3/uL (0.0-0.6); ABSOLUTE LYMPHOCYTES (AUTO) 2.5 10^3/uL (0.5-4.7); ABSOLUTE MONOCYTES (AUTO) 0.5 10^3/uL (0.1-1.4); ABSOLUTE NEUT (AUTO) 4.8 10^3/uL (1.7-8.2); BASOPHILS % (AUTO) 0.6 % (0-2); HEMATOCRIT 43.3 % (36.0-47.0); LYMPHOCYTES % (AUTO) 31.2 % (13-45); MEAN CORPUSCULAR HGB CONC 34.5 g/dL (32.0-36.0); MEAN CORPUSCULAR VOLUME 87 fl (80-97); MONOCYTES % (AUTO) 6.2 % (3-13); PLATELET COUNT 261 10^3/uL (150-450); RED BLOOD COUNT 4.99 10^6/uL (3.72-5.28); TOTAL CELLS COUNTED % (AUTO) 100 %; WHITE BLOOD COUNT 7.9 10^3/uL (4.0-10.5)
[2018-04-26 21:06] LABS: APPEARANCE,URINE CLEAR; BILIRUBIN,URINE NEGATIVE (NEGATIVE); COLOR,URINE YELLOW; GLUCOSE, URINE >=500 mg/dL (NEGATIVE); KETONES,URINE TRACE mg/dL (NEGATIVE); LEUKOCYTE ESTERASE,URINE NEGATIVE (NEGATIVE); NITRITE,URINE NEGATIVE (NEGATIVE); PROTEIN,URINE 30 mg/dL (NEGATIVE); URINE SPECIFIC GRAVITY 1.035; UROBILINOGEN,URINE NEGATIVE mg/dL (<2.0)
[2018-04-26 21:15] LABS: ALANINE AMINOTRANSFERASE 28 U/L (9-52); ALBUMIN 4.2 g/dL (3.5-5.0); ALKALINE PHOSPHATASE 105 U/L (38-126); ANION GAP 8 (5-19); ASPARTATE AMINO TRANSFERASE 28 U/L (14-36); BILIRUBIN,DIRECT 0.3 mg/dL (0.0-0.4); BILIRUBIN,TOTAL 0.6 mg/dL (0.2-1.3); BLOOD UREA NITROGEN 21 mg/dL (7-20); CALCIUM 9.1 mg/dL (8.4-10.2); CARBON DIOXIDE 29 mmol/L (22-30); CHLORIDE 101 mmol/L (98-107); GLUCOSE 166 mg/dL (75-110); POTASSIUM 3.6 mmol/L (3.6-5.0); SODIUM 138.1 mmol/L (137-145); TOTAL PROTEIN 7.4 g/dL (6.3-8.2)
[2018-04-26] MEDS ORDERED: ONDANSETRON HCL INJ/PF 4 MG/2 ML SDV IV ONE (21:23)
[2018-04-26] MEDS ORDERED: HYDROMORPHONE HCL INJ/PF 2 MG/ML AMPULE IV ONE (22:11)
--- NOTE | 2018-04-26 23:27 | RADIOLOGY REPORT (SQ) ---
CT ABDOMEN PELVIS WITH IV CONTRAST HISTORY: Left lower quadrant pain. Nausea and vomiting. COMPARISON: 06/06/2017 TECHNIQUE: CT scan of the abdomen and pelvis with IV contrast. This exam was performed according to our departmental dose-optimization program, which includes automated exposure control, adjustment of the mA and/or kV according to patient size and/or use of iterative reconstruction technique. FINDINGS: The lung bases are clear. No pleural or pericardial effusions. Mild hepatic steatosis is seen. The spleen and pancreas are unremarkable. No gallstones by CT criteria. No biliary ductal dilatation is seen. No adrenal masses are identified. Both kidneys are symmetric, without hydronephrosis. No ureteral or bladder stones are seen. There has been a prior hysterectomy. The distal thoracic esophagus and stomach are unremarkable. No small bowel obstruction. The appendix is visualized and is normal caliber. No pericolonic inflammatory stranding is seen. No mesenteric adenopathy, free fluid or free air is identified. The abdominal aorta and IVC are normal caliber. No acute osseous findings. IMPRESSION: No acute abnormality in the abdomen or pelvis.
[2018-04-27] MEDS ORDERED: DICYCLOMINE HCL INJ 20 MG/2 ML AMPULE IM ONE (01:02)
[2018-04-27] MEDS ORDERED: HYDROMORPHONE HCL INJ/PF 2 MG/ML AMPULE IV ONE (01:02)
--- NOTE | 2018-04-27 01:13 | RADIOLOGY REPORT (SQ) ---
US PELVIS HISTORY: Left adnexal pain. COMPARISON: 06/06/2017 TECHNIQUE: Grayscale, color Doppler, and spectral Doppler ultrasound images of the pelvis were obtained. FINDINGS: There has reportedly been a prior hysterectomy and right oophorectomy. The left ovary was not visualized on this study. IMPRESSION: 1. Prior hysterectomy and right nephrectomy. 2. Left ovary not visualized.
--- NOTE | 2018-04-27 01:16 | ER Document Report ---
ED GI/ - General Chief Complaint: Low Back Pain Stated Complaint: BACK PAIN Time Seen by Provider: 04/26/18 20:00 Mode of Arrival: Ambulatory Information source: Patient Notes: Patient is a 42-year-old female comes emergency room complaining of left flank plain radiating around to the left lower abdominal area. She has had nausea with this but no vomiting it came on this morning and has been on and off all day and became more intense this evening. Patient has past medical history pertinent for a partial hysterectomy with one ovary left on the left side. She has a history of hypertension, insulin-dependent diabetes mellitus she does not smoke drink or do drugs. 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 Patient states that the pain when it hits is intense strong and sharp. TRAVEL OUTSIDE OF THE [place] IN LAST 30 DAYS: No - HPI Patient complains to provider of: Abdominal pain, Flank pain Onset: This morning Timing/Duration: Sudden, Waxing and waning, Worse Quality of pain: Cramping, Sharp, Stabbing Severity at maximum: Severe Severity in ED: Moderate Pain Level: 5 Context: denies: Bad food, Lifting, Out of the country travel, , Recent trauma, Other Location: LLQ, Left flank. No: Chest pain Vaginal bleeding (Compared to normal period): None LMP: Partial hysterectomy Sexual history: Active Associated symptoms: Nausea. 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 Denies: Hx Cerebrovascular Accident Endocrine Medical History: Reports: Hx Diabetes Mellitus Type 2 Renal/ Medical History: Denies: Hx Peritoneal Dialysis Past Surgical History: Reports: Hx Hysterectomy - Immunizations Hx Diphtheria, Pertussis, Tetanus Vaccination: Yes Hx Pneumococcal Vaccination: 05/09/14 Review of Systems - Review of Systems Constitutional: No symptoms reported EENT: No symptoms reported Cardiovascular: No symptoms reported Respiratory: No symptoms reported Gastrointestinal: See HPI, Abdominal pain, Nausea Genitourinary: No symptoms reported Female Genitourinary: No symptoms reported Musculoskeletal: No symptoms reported Skin: No symptoms reported Hematologic/Lymphatic: No symptoms reported Neurological/Psychological: No symptoms reported -: Yes All other systems reviewed and negative Physical Exam - Vital signs Vitals: Temp Pulse Resp BP Pulse Ox 97.3 F 73 17 151/111 H 99 04/26/18 19:51 04/26/18 19:51 04/26/18 19:51 04/26/18 19:51 04/26/18 19:51 Interpretation: Hypertensive - Notes Notes: PHYSICAL EXAMINATION: GENERAL: Patient is a well-nourished well-developed morbidly obese female who is in no apparent distress on physical examination this evening however she is in obvious to moderate discomfort. HEAD: Atraumatic, normocephalic. NECK: Normal range of motion, supple without lymphadenopathy LUNGS: Breath sounds clear to auscultation bilaterally and equal. No wheezes rales or rhonchi. HEART: Regular rate and rhythm without murmurs ABDOMEN: Examination patient's abdomen shows it to be very rotund that has a moderate size panniculus that hangs over. Her bowel sounds are present all 4 quads. After you sheepskin pickler the panniculus impression underneath the left lower quadrant this is where her pain seems to originate. Can only get positive return of pain with deep palpation in that area. Tenderness to percussion in the flank area. Female : deferred Musculoskeletal: Normal range of motion, no pitting or edema. No cyanosis. Currently there is no NEUROLOGICAL: Normal speech, normal gait. Normal sensory, motor exams PSYCH: Normal mood, normal affect. SKIN: Warm, Dry, normal turgor, no rashes or lesions noted. Course - Re-evaluation Re-evalutation: 04/27/18 01:16 Patient's labs came back normal with the exception of a glucose of 160 and 500+ goes in her urine. Everything else was normal. Her CT also did not show anything acute and the appendix was seen in the liver was slightly fatty but nothing that would be considered a problem at this point. Further inspection led me into the area of the left lower quadrant and the only remaining other organ she had locally was the left ovary did was not mentioned on the CT report. I contacted ultrasound and had them attempt to view the left ovary for any possibility of torsion. It was a long shot and we did not see anything with the transvaginal ultrasound. Given this and normal labs I feel comfortable in sending patient home I believe may be she is having a spasmodic bowel and I am giving her Bentyl/Levsin to see if this will help settle it down. Patient did state that after I went in and manipulated that area on the left lower under her panniculus that she got the urge to go to the bathroom and went and had a moderate sized diarrhea movement. And she felt better for a while. This could be an early gastroenteritis is kicking and are a enteritis so we will try this and see if she has a primary care she can follow-up with so I am having her contact them tomorrow for an established appointment. Of also informed her she can return to ER if she has any problems or concerns. Furthermore a pelvic exam would not yield any results since she is had a partial hysterectomy with only the left ovary being left in. 04/27/18 01:17 - Vital Signs Vital signs: Temp Pulse Resp BP Pulse Ox 97.3 F 73 17 151/111 H 99 04/26/18 19:51 04/26/18 19:51 04/26/18 19:51 04/26/18 19:51 04/26/18 19:51 - Laboratory Result Diagrams: 04/26/18 20:46 04/26/18 20:46 Laboratory results interpreted by me: 04/26/18 04/26/18 20:46 20:54 BUN 21 H Glucose 166 H Urine Protein 30 H Urine Glucose (UA) >=500 H Urine Ketones TRACE H Discharge - Discharge Clinical Impression: Abdominal pain Qualifiers: Abdominal location: left lower quadrant Qualified Code(s): R10.32 - Left lower quadrant pain Spasmodic colon Qualifiers: Irritable bowel syndrome type: unspecified Qualified Code(s): K58.9 - Irritable bowel syndrome without diarrhea Condition: Stable Disposition: HOME, SELF-CARE Instructions: Abdominal Pain ([facility]), Antispasmodics ([facility]), Oral Narcotic Medication ([facility]) Additional Instructions: ABDOMINAL PAIN: There are many causes of abdominal pain. Pain can mean a serious problem requiring surgery (such as appendicitis). It can also be an innocent problem that goes away on its own (such as a viral infection). Often, time must pass to determine the cause of pain. The physician does not feel that hospitalization is necessary, at present. Things may change within the next 24 hours. Call the doctor or come back for re- examination if any problems occur, such as: (1) Pain that becomes more severe, steady, or becomes concentrated in one specific area. Also, pain that is more severe with movement or coughing. (2) Vomiting that persists or becomes more frequent. (3) Blood in the vomitus, urine, or bowel movements. Blood in the stool may have a tarry or black appearance. (4) Shaking chills or fever greater than 100 degrees F. (5) The abdomen becomes more distended or swollen. (6) Bowel movements cease. (7) Failure to improve as expected. NORMAL EXAM AND WORKUP: At this time, your examination and workup show no significant abnormality. No significant abnormal physical findings are noted. All laboratory, EKG, and imaging (x-ray, CT scans, ultrasound) studies that were ordered show no significant abnormality. Although your examination and all studies that were ordered showed no significant abnormal finding, there are no examinations and no studies that are 100% accurate. There is always the possibility that some abnormality could exist and not be detected with physical examination or within the limits and capabilities of laboratory and other studies. You should return or follow up as you were instructed on your visit today for further evaluation if your symptoms do not resolve. TORADOL INJECTION: You have been given an injection of ketorolac tromethamine (Toradol). This is an excellent, safe drug for pain control. It also has potent antiinflammatory action. You should have significant pain relief within about one hour. Toradol is not addicting and is non-sedating. It does not interfere with driving or work. Call or return if you develop itching, hives, shortness of breath, or rash. PAIN MEDICATION INJECTION: You have received an injection of a pain medication. You should experience significant pain relief within 45 minutes. This drug is a narcotic -- it will impair your judgement, slow your reaction time and make you sleepy (as well as relieve your pain). Narcotics also can cause nausea. You should not drive, work with machinery, or perform any task requiring mental alertness until all effects of the medication are gone -- six to eight hours. Do not take any alcohol, or sedatives, and do not take any other medication without checking with your physician. ANTISPASMODICS: You have been given a prescription for an antispasmodic medicine. This type of drug is used to decrease cramping and pain in the intestines. It is also used to decrease secretion of internal fluids (such as stomach acid in ulcer disease or pancreatic juice in pancreas disease). This medicine may cause drowsiness, especially with the first dose. Do not operate machinery or drive until all side effects have resolved. Do not combine with alcohol. Other common side effects include dry mouth and eyes. In older persons, antispasmodics can occasionally cause urinary retention, constipation, or trouble focusing the eyes. Glaucoma may be worsened by this medicine. ORAL NARCOTIC MEDICATION: You have been given a prescription for pain control. This medication is a narcotic. It's best taken with food, as nausea can result if taken on an empty stomach. Don't operate machinery or drive within six hours of taking this medication. Do not combine this medicine with alcohol, or with any medication which can cause sedation (such as cold tablets or sleeping pills) unless you get permission from the physician. Narcotics tend to cause constipation. If possible, drink plenty of fluids and eat a diet high in fiber and fruits. Please be aware that prescription narcotics also have the potential for abuse. People become addicted to these medications because of the general sense of wellbeing that they induce. This feeling along with a significant reduction in tension, anxiety, and aggression provides a stimulating seductive quality to these drugs. Once your pain is under control, we encourage you to discard your unused narcotics. FOLLOW-UP CARE: If you have been referred to a physician for follow-up care, call the physicians office for an appointment as you were instructed or within the next two days. If you experience worsening or a significant change in your symptoms, notify the physician immediately or return to the Emergency Department at any t rod for re-evaluation. FOLLOW-UP CARE: You should return for re-evaluation in 12 hours. This follow-up visit is important. If you are unable to return, or feel that the return visit is unnece ssary, please call us. Home and rest. Medication as prescribed. As we have discussed we cannot find anything going on that it will be harmful to you tonight. Your CT was negative your labs were normal your urine was clean with the exception of sugar in it. And the ultrasound did not sheepskin pickler the ovary but with everything else being normal I feel comfortable letting her go home. Highly suggest that you contact your primary care provider tomorrow morning and establish an appointment sometime tomorrow or the first of the week. Should you have any concerns or problems over the weekend please return to ER for recheck. Prescriptions: Hyoscyamine Sulfate [Levsin-Sl] 0.25 mg SL Q4 #30 tab.subl Ondansetron [Zofran Odt 4 mg Tablet] 1 - 2 tab PO Q4H PRN #15 tab.rapdis PRN Reason: For Nausea/Vomiting Oxycodone HCl/Acetaminophen [Percocet 5-325 mg Tablet] 1 - 2 tab PO Q4H PRN #10 tablet PRN Reason: Forms: Elevated Blood Pressure, Return to Work Referrals: CLAIR COELHO PA-C [Primary Care Provider] - Follow up as needed
[2018-04-27 01:44] VITALS: BP 156/98
== END 2018-04-27 01:44 | disposition home or self-care (01) ==
LOC: ER 19:24
DX: K58.0 Irritable bowel syndrome with diarrhea (principal); R10.32 Left lower quadrant pain; R10.9 Unspecified abdominal pain; R11.0 Nausea; E66.01 Morbid (severe) obesity due to excess calories; K76.0 Fatty (change of) liver, not elsewhere classified; E11.9 Type 2 diabetes mellitus without complications; Z79.4 Long term (current) use of insulin; I10 Essential (primary) hypertension
CPT/HCPCS: 96376; 99284; 96372; 96361; 96374; 96375; 36415; 85025; 80053; 81001; 76830; 93976; 74177; J0500; J1885; J1170 ×2; J2405; J7030

== ENCOUNTER 2018-06-18 11:54 | Emergency (ER) | payer BC ==
[2018-06-18] MEDS ORDERED: ONDANSETRON 4 MG TAB.RAPDIS PO ONE (12:31)
[2018-06-18] MEDS ORDERED: MORPHINE SULFATE 10 MG/ML INJ IV ONE ×2 (12:31→17:14)
--- NOTE | 2018-06-18 12:33 | ER Document Report ---
ED Medical Screen (RME) - General Chief Complaint: Chest Pain Stated Complaint: CHEST PAIN,LEFT ARM PAIN Time Seen by Provider: 06/18/18 12:25 Primary Care Provider: CLAIR COELHO PA-C [Primary Care Provider] - Follow up as needed Mode of Arrival: Ambulatory Information source: Patient Notes: 42-year-old female with a history of hypertension and diabetes presents to the emergency department with complaints of a sharp and stabbing chest pain that began 30 minutes prior to arrival while at work. Patient states that she is having associated nausea but denies any vomiting, diaphoresis. She states that the pain is a constant sensation. She denies any radiation the pain. She states that she is having numbness and tingling to the left arm. She took 81 mg of aspirin this morning as well as nitro when the pain started. She states that it did not help with her symptoms. She is complaining of left lower extremity pain. She states that this just started up this week. Patient states that she has a history of hypertension, diabetes, family history of coronary artery disease. She denies any hyperlipidemia, history of coronary artery disease or smoking. Patient also denies any recent travel, recent surgeries, history of DVT or PE. Patient states that she is having left lower extremity pain and swelling. I have greeted and performed a rapid initial assessment of this patient. A comprehensive ED assessment and evaluation of the patient, analysis of test results and completion of the medical decision making process will be conducted by additional ED providers. PHYSICAL EXAMINATION: GENERAL: Well-appearing, well-nourished and in no acute distress. HEAD: Atraumatic, normocephalic. EYES: Pupils equal round extraocular movements intact, conjunctiva are normal. ENT: Nares patent NECK: Normal range of motion LUNGS: No respiratory distress. Musculoskeletal: Normal range of motion. Left calf tenderness to palpation. NEUROLOGICAL: Normal speech, normal gait. PSYCH: Normal mood, normal affect. SKIN: Warm, Dry, normal turgor, no rashes or lesions noted. TRAVEL OUTSIDE OF THE [place] IN LAST 30 DAYS: No - Related Data Allergies/Adverse Reactions: No Known Allergies Allergy (Verified 06/18/18 11:56) Past Medical History - Past Medical History Cardiac Medical History: Reports: Hx Hypertension Neurological Medical History: Reports: Hx Migraine - 5 years, Hx Seizures. De nies: Hx Cerebrovascular Accident Endocrine Medical History: Reports: Hx Diabetes Mellitus Type 2 Renal/ Medical History: Denies: Hx Peritoneal Dialysis Past Surgical History: Reports: Hx Hysterectomy - Immunizations Hx Diphtheria, Pertussis, Tetanus Vaccination: Yes Physical Exam - Vital signs Vitals: Temp Pulse Resp BP Pulse Ox 97.8 F 75 20 165/100 H 100 06/18/18 12:08 06/18/18 12:08 06/18/18 12:08 06/18/18 12:08 06/18/18 12:08 Course - Vital Signs Vital signs: Temp Pulse Resp BP Pulse Ox 97.8 F 75 20 165/100 H 100 06/18/18 12:08 06/18/18 12:08 06/18/18 12:08 06/18/18 12:08 06/18/18 12:08 Doctor's Discharge - Discharge Referrals: CLAIR COELHO PA-C [Primary Care Provider] - Follow up as needed
--- NOTE | 2018-06-18 12:56 | RADIOLOGY REPORT (SQ) ---
EXAM DESCRIPTION: CHEST SINGLE VIEW COMPLETED DATE/TIME: 06/18/2018 12:42 pm REASON FOR STUDY: chest pain COMPARISON: 02/23/2016 TECHNIQUE: Single frontal radiographic view of the chest acquired. NUMBER OF VIEWS: One view. LIMITATIONS: Mild expiratory lung volumes FINDINGS: LUNGS AND PLEURA: No pneumothorax. No consolidation or pleural effusion. MEDIASTINUM AND HILAR STRUCTURES: Stable. HEART AND VASCULAR STRUCTURES: Stable. BONES: No acute findings. HARDWARE: None in the chest. OTHER: No other significant finding. IMPRESSION: NO ACUTE FINDINGS. TECHNICAL DOCUMENTATION: JOB ID: [id number] [id number] 2010 [employer]- All Rights Reserved Reading location - IP/workstation name: [email or web address]
--- NOTE | 2018-06-18 13:12 | ER Document Report ---
ED General - General Chief Complaint: Chest Pain Stated Complaint: CHEST PAIN,LEFT ARM PAIN Time Seen by Provider: 06/18/18 12:25 Primary Care Provider: CLAIR COELHO PA-C [Primary Care Provider] - Follow up as needed Mode of Arrival: Ambulatory TRAVEL OUTSIDE OF THE [place] IN LAST 30 DAYS: No - HPI Notes: Patient is a 42-year-old female that presents to the emergency department for chief complaint of chest pain. Patient reports sharp chest pain located on her left side that radiates into her left arm. The onset was 1130 this morning while she was at work. She states the pain is worse with deep inspiration and moving. She has associated nausea but denies any shortness of breath, diaphoresis or vomiting. Patient states she had a normal stress test 1 year ago and was told that she had "heart spasms". She was prescribed nitroglycerin and took one this morning with no relief of her chest pain. She has also taken 81 mg of baby aspirin. She denies any recent surgery, travel, immobilization, estrogen use or history of DVT/PE. She reports pain in her left lower extremity over the last few weeks that is sharp. She states she always has some swelling and pain in her lower extremities but the left side has been bothering her more recently. She does have peripheral venous stasis color changes to her legs and denies any change in coloration. Patient also states her glucometer today read "high" at home. She did take her sliding scale insulin after this prior to coming to the ED. Past Medical History: Diabetes, hypertension Past Surgical History: Negative Social History: Denies drugs alcohol and tobacco Family History: Reviewed and noncontributory for presenting illness Allergies: Reviewed, see documented allergy list. REVIEW OF SYSTEMS: CONSTITUTIONAL : No fever No chills No diaphoresis No recent illness EENT: No vision changes No congestion No sore throat CARDIOVASCULAR: chest pain No palpitations RESPIRATORY: No shortness of breath No cough No difficulty breathing GASTROINTESTINAL: No abdominal pain nausea No vomiting No diarrhea GENITOURINARY: No dysuria No hematuria No difficulty urinating MUSCULOSKELETAL: No back pain leg pain No arm pain SKIN: No rashes No lesions LYMPHATIC: No swollen, enlarged glands. NEUROLOGICAL: No lightheadedness No headache No weakness No paresthesias PSYCHIATRIC: No anxiety No depression PHYSICAL EXAMINATION: Vital signs reviewed, nursing noted reviewed. GENERAL: Somnolent but wakes easily to verbal stimuli, obese and in no acute distress. HEAD: Atraumatic, normocephalic. EYES: Eyes appear normal, extraocular movements intact, sclera anicteric, conjunctiva are normal. ENT: nares patent, oropharynx clear without exudates. Moist mucous membranes. NECK: Normal range of motion, supple without lymphadenopathy LUNGS: Breath sounds clear to auscultation bilaterally and equal. No wheezes rales or rhonchi. HEART: Regular rate and rhythm without murmurs ABDOMEN: Soft, nontender, normoactive bowel sounds. No rebound, guarding, or rigidity. No masses appreciated. EXTREMITIES: Left calf tenderness, good range of motion, +1 pitting edema bilaterally and symmetric. NEUROLOGICAL: No focal neurological deficits. Moves all extremities spontaneously Motor and sensory grossly intact on exam. PSYCH: Normal mood, normal affect. SKIN: Warm, Dry, normal turgor, pretibial venous stasis color changes bilaterally left greater than right. - Related Data Allergies/Adverse Reactions: No Known Allergies Allergy (Verified 06/18/18 11:56) Past Medical History - General Information source: Patient - Social History Smoking Status: Never Smoker Frequency of alcohol use: None Drug Abuse: None Family History: Reviewed & Not Pertinent, CAD, DM, Hypertension, Other - No family history of aneurysms Patient has suicidal ideation: No Patient has homicidal ideation: No - Past Medical History Cardiac Medical History: Reports: Hx Hypertension Neurological Medical History: Reports: Hx Migraine - 5 years, Hx Seizures. Denies: Hx Cerebrovascular Accident Endocrine Medical History: Reports: Hx Diabetes Mellitus Type 2 Renal/ Medical History: Denies: Hx Peritoneal Dialysis Past Surgical History: Reports: Hx Gynecologic Surgery - partial hysterectomy (still have L ovary), Hx Hysterectomy - Immunizations Hx Diphtheria, Pertussis, Tetanus Vaccination: Yes Hx Pneumococcal Vaccination: 05/09/14 Physical Exam - Vital signs Vitals: Temp Pulse Resp BP Pulse Ox 97.8 F 75 20 165/100 H 100 06/18/18 12:08 06/18/18 12:08 06/18/18 12:08 06/18/18 12:08 06/18/18 12:08 Course - Re-evaluation Re-evalutation: 06/18/18 13:16 Vitals reviewed. Nursing notes reviewed. Patient did receive aspirin and morphine for her chest pain. She will be given another dose of nitro for further pain control. Her EKG is unchanged from last year. She was placed on nurse monitoring. She is in no acute distress currently. [id number] glucose 331. 06/18/18 14:06 Patient reevaluated. She did not get any relief of the discomfort with nitroglycerin. This is the second nitroglycerin she has had today. She is still somnolent likely related to the morphine she received in triage. Patient still complaining of some chest discomfort and will be given Toradol. Her chest x-ray shows no acute process including pneumothorax or pneumonia. Patient's d- dimer is negative and I do not currently suspect pulmonary embolism. Her initial troponin is negative and her heart score is 3 placing her at low risk for major adverse cardiac event. Delta troponin is ordered for 1430. Patient currently hemodynamically stable. Plan to discharge home if second troponin is negative. Patient in agreement with this plan of care. Laboratory 06/18/18 06/18/18 06/18/18 12:17 12:55 12:55 WBC 7.8 RBC 5.04 Hgb 15.5 Hct 44.9 MCV 89 MCH 30.6 MCHC 34.4 RDW 14.0 Plt Count 237 Seg Neutrophils % 64.9 Lymphocytes % 26.6 Monocytes % 6.9 Eosinophils % 1.2 Basophils % 0.4 Absolute Neutrophils 5.0 Absolute Lymphocytes 2.1 Absolute Monocytes 0.5 Absolute Eosinophils 0.1 Absolute Basophils 0.0 D-Dimer VBG pH VBG pCO2 VBG HCO3 VBG Base Excess Sodium 139.6 Potassium 4.3 Chloride 102 Carbon Dioxide 29 Anion Gap 9 BUN 16 Creatinine 0.77 Est GFR ( Amer) > 60 Est GFR (Non-Af Amer) > 60 Glucose 304 H POC Glucose 331 H Calcium 9.0 Total Bilirubin 0.4 Direct Bilirubin 0.3 Neonat Total Bilirubin Not Reportable Neonat Direct Bilirubin Not Reportable Neonat Indirect Bili Not Reportable AST 18 ALT 20 Alkaline Phosphatase 121 Troponin I Total Protein 6.7 Albumin 4.0 06/18/18 06/18/18 06/18/18 12:55 12:55 12:55 WBC RBC Hgb Hct MCV MCH MCHC RDW Plt Count Seg Neutrophils % Lymphocytes % Monocytes % Eosinophils % Basophils % Absolute Neutrophils Absolute Lymphocytes Absolute Monocytes Absolute Eosinophils Absolute Basophils D-Dimer 0.27 VBG pH 7.31 VBG pCO2 59.1 VBG HCO3 29.2 VBG Base Excess 1.4 Sodium Potassium Chloride Carbon Dioxide Anion Gap BUN Creatinine Est GFR ( Amer) Est GFR (Non-Af Amer) Glucose POC Glucose Calcium Total Bilirubin Direct Bilirubin Neonat Total Bilirubin Neonat Direct Bilirubin Neonat Indirect Bili AST ALT Alkaline Phosphatase Troponin I < 0.012 Total Protein Albumin Chest X-Ray 06/18/18 12:30 IMPRESSION: NO ACUTE FINDINGS. - Vital Signs Vital signs: Temp Pulse Resp BP Pulse Ox 97.8 F 75 23 H 156/105 H 96 06/18/18 12:08 06/18/18 12:08 06/18/18 13:04 06/18/18 13:03 06/18/18 13:30 - Laboratory Result Diagrams: 06/18/18 12:55 06/18/18 12:55 Laboratory results interpreted by me: 06/18/18 06/18/18 12:17 12:55 Glucose 304 H POC Glucose 331 H - EKG Interpretation by Me Additional EKG results interpreted by me: 06/18/18 13:05 Interpreted by myself 1204: Normal sinus rhythm, rate 74, normal axis, LVH, no STEMI, T wave inversion s lead III unchanged from 12/29/17 Discharge - Discharge Clinical Impression: Chest pain Qualifiers: Chest pain type: unspecified Qualified Code(s): R07.9 - Chest pain, unspecified Condition: Stable Instructions: Chest Pain of Unclear Cause ([facility]) Additional Instructions: Please return to the emergency department if you have any worsening, or concern of your symptoms. Please return to the emergency department if you develop chest pain, difficulty breathing, severe abdominal pain, or ongoing vomiting. Please follow-up with your primary care physician in 2-3 days and any other recommended physicians. If prescribed, take all medications as directed. If you have any questions or concerns do not hesitate to return the emergency department for evaluation. Referrals: CLAIR COELHO PA-C [Primary Care Provider] - Follow up in 3-5 days
[2018-06-18] MEDS ORDERED: ASPIRIN 81 MG TABLET, CHEWABLE PO ONE (13:17)
[2018-06-18 13:27] LABS: VENOUS BLOOD BASE EXCESS 1.4 mmol/L; VENOUS BLOOD HCO3 29.2 mmol/L (20-32); VENOUS BLOOD PCO2 59.1 mmHg (35-63); VENOUS BLOOD PH 7.31 (7.30-7.42)
[2018-06-18] MEDS: NITROGLYCERIN 0.4 MG/TAB 25 TAB/BOTTLE SL PRN ×2 (13:28→13:33)
[2018-06-18 13:31] LABS: ABSOLUTE EOSINOPHILS # (AUTO) 0.1 10^3/uL (0.0-0.6); ABSOLUTE LYMPHOCYTES (AUTO) 2.1 10^3/uL (0.5-4.7); ABSOLUTE MONOCYTES (AUTO) 0.5 10^3/uL (0.1-1.4); BASOPHILS % (AUTO) 0.4 % (0-2); EOSINOPHILS % (AUTO) 1.2 % (0-6); HEMATOCRIT 44.9 % (36.0-47.0); HEMOGLOBIN 15.5 g/dL (12.0-15.5); LYMPHOCYTES % (AUTO) 26.6 % (13-45); MEAN CORPUSCULAR HEMOGLOBIN 30.6 pg (27.0-33.4); MEAN CORPUSCULAR HGB CONC 34.4 g/dL (32.0-36.0); MEAN CORPUSCULAR VOLUME 89 fl (80-97); MONOCYTES % (AUTO) 6.9 % (3-13); PLATELET COUNT 237 10^3/uL (150-450); RED BLOOD COUNT 5.04 10^6/uL (3.72-5.28); SEGMENTED NEUTROPHILS % (AUTO) 64.9 % (42-78); TOTAL CELLS COUNTED % (AUTO) 100 %; WHITE BLOOD COUNT 7.8 10^3/uL (4.0-10.5)
[2018-06-18 13:45] LABS: ALANINE AMINOTRANSFERASE 20 U/L (9-52); ALKALINE PHOSPHATASE 121 U/L (38-126); ANION GAP 9 (5-19); ASPARTATE AMINO TRANSFERASE 18 U/L (14-36); BILIRUBIN,DIRECT 0.3 mg/dL (0.0-0.4); BILIRUBIN,TOTAL 0.4 mg/dL (0.2-1.3); BLOOD UREA NITROGEN 16 mg/dL (7-20); CARBON DIOXIDE 29 mmol/L (22-30); CHLORIDE 102 mmol/L (98-107); GLUCOSE 304 mg/dL (75-110); POTASSIUM 4.3 mmol/L (3.6-5.0); SODIUM 139.6 mmol/L (137-145); TOTAL PROTEIN 6.7 g/dL (6.3-8.2)
[2018-06-18] MEDS ORDERED: NORMAL SALINE 1000 ML 1,000 ML IV ONE (13:56)
[2018-06-18] MEDS ORDERED: KETOROLAC TROMETHAMINE INJ/PF 30 MG/1 ML SDV IV ONE (14:05)
--- NOTE | 2018-06-18 15:31 | RADIOLOGY REPORT (SQ) ---
EXAM DESCRIPTION: VENOUS UNILATERAL LOWER COMPLETED DATE/TIME: 06/18/2018 3:21 pm REASON FOR STUDY: pain left leg COMPARISON: 02/23/2016 TECHNIQUE: Dynamic and static parks scale and color images acquired of the left leg venous system. Se lected spectral images acquired with additional compression and augmentation maneuvers. The contralat eral common femoral vein and saphenofemoral junction were also imaged. Images stored on PACS. LIMITATIONS: None. FINDINGS: COMMON FEMORAL: Normal phasicity, compression and augmentation. No visualized echogenic ma terial on parsk scale. No defects on color images. FEMORAL: Normal compression and augmentation. No visualized echogenic material on parks scale. No defe cts on color images. POPLITEAL: Normal compression, augmentation. No visualized echogenic material on parks scale. No defec ts on color images. CALF VESSELS: Normal compression, augmentation. No visualized echogenic material on parks scale. No de fects on color images. GSV and SSV: Normal compression, augmentation. No visualized echogenic material on parks scale. No def ects on color images. ANY DEEP VENOUS INSUFFICIENCY: Not evaluated. ANY EVIDENCE OF POPLITEAL CYST: No. OTHER: No other significant finding. CONTRALATERAL COMMON FEMORAL VEIN AND SAPHENOFEMORAL JUNCTION: Normal phasicity, compression and augmentation. No visualized echogenic material on parks scale. No de fects on color images. IMPRESSION: NO EVIDENCE DVT OR SVT IN THE LEFT LEG. TECHNICAL DOCUMENTATION: JOB ID: [id number] [id number] [employer]- All Rights Reserved Reading location - IP/workstation name: [employer] ([email or web address])
[2018-06-18 18:19] VITALS: BP 146/89
--- NOTE | 2018-06-18 23:57 | EKG REPORT ---
SEVERITY:- ABNORMAL ECG - SINUS RHYTHM LEFT VENTRICULAR HYPERTROPHY : Confirmed by: Elly Richter 18-Jun-2018 23:56:57
== END 2018-06-18 18:37 | disposition home or self-care (01) ==
LOC: ER 11:54
DX: I20.1 Angina pectoris with documented spasm (principal); I10 Essential (primary) hypertension; M79.605 Pain in left leg; R11.0 Nausea; R60.0 Localized edema; E11.9 Type 2 diabetes mellitus without complications; Z79.4 Long term (current) use of insulin; Z82.49 Family history of ischemic heart disease and other diseases of the circulatory system
CPT/HCPCS: 93005; 96376; 99285; 96361; 96374; 96375; 36415; 82962; 85025; 80053; 84484; 85379; 82803; 93971; 71045; 93010; S0119; J1885; J2270; J7030

== ENCOUNTER 2018-07-20 18:27 | Emergency (ER) | payer BC ==
[2018-07-20 19:40] LABS: APPEARANCE,URINE CLEAR; BILIRUBIN,URINE NEGATIVE (NEGATIVE); COLOR,URINE YELLOW; GLUCOSE, URINE >=500 mg/dL (NEGATIVE); KETONES,URINE TRACE mg/dL (NEGATIVE); LEUKOCYTE ESTERASE,URINE TRACE (NEGATIVE); NITRITE,URINE NEGATIVE (NEGATIVE); PROTEIN,URINE NEGATIVE (NEGATIVE); URINE SPECIFIC GRAVITY 1.026; UROBILINOGEN,URINE NEGATIVE mg/dL (<2.0)
--- NOTE | 2018-07-20 20:15 | ER Document Report ---
ED General - General Chief Complaint: Flank Pain Stated Complaint: FLANK PAIN Time Seen by Provider: 07/20/18 20:03 Primary Care Provider: CLAIR COELHO PA-C [Primary Care Provider] - Follow up as needed TRAVEL OUTSIDE OF THE [place] IN LAST 30 DAYS: No - HPI Notes: Patient is a 42-year-old female with a history of hypertension, insulin- dependent diabetes, anxiety, chronic back pain, chronic lower extremity edema, obesity who presents to the emergency department complaining of mid abdominal pain and left lower abdominal pain that began over the last day. Patient states the pain can be sharp and she did have nausea and vomiting but the last episode of vomiting earlier today. She is urinating normally and having normal bowel movements. Patient states that she has gone twice today and it was soft. Denies drug allergies. She has a partial hysterectomy history. Patient states that she has had pain in this area once before. No other concerns or complaints. Denies any headache, fever, neck pain, URI, sore throat, chest pain, palpitations, syncope, cough, shortness of breath, wheeze, dyspnea, urinary retention, dysuria, hematuria, loss of control of bowel or bladder, numbness/tingling, saddle anesthesia, muscle paralysis/weakness, or rash. - Related Data Allergies/Adverse Reactions: No Known Allergies Allergy (Verified 07/20/18 20:12) Past Medical History - Social History Smoking Status: Never Smoker Family History: Reviewed & Not Pertinent, CAD, DM, Hypertension, Other - No family history of aneurysms - Past Medical History Cardiac Medical History: Reports: Hx Hypertension Neurological Medical History: Reports: Hx Migraine - 5 years, Hx Seizures. Allan es: Hx Cerebrovascular Accident Endocrine Medical History: Reports: Hx Diabetes Mellitus Type 2 Renal/ Medical History: Denies: Hx Peritoneal Dialysis Past Surgical History: Reports: Hx Gynecologic Surgery - partial hysterectomy (still have L ovary), Hx Hysterectomy - Immunizations Hx Diphtheria, Pertussis, Tetanus Vaccination: Yes Hx Pneumococcal Vaccination: 05/09/14 Review of Systems - Review of Systems -: Yes All other systems reviewed and negative Physical Exam - Vital signs Vitals: Temp Pulse Resp BP Pulse Ox 98.0 F 72 20 170/109 H 98 07/20/18 18:42 07/20/18 18:42 07/20/18 18:42 07/20/18 18:42 07/20/18 18:42 - Notes Notes: PHYSICAL EXAMINATION: GENERAL: Well-appearing, well-nourished and in no acute distress. HEAD: Atraumatic, normocephalic. EYES: Pupils equal round and reactive to light, extraocular movements intact, sclera anicteric, conjunctiva are normal. ENT: Nares patent and without discharge. oropharynx clear without exudates. No tonsilar hypertrophy or erythema. Moist mucous membranes. NECK: Normal range of motion, supple without lymphadenopathy LUNGS: Breath sounds clear to auscultation bilaterally and equal. No wheezes rales or rhonchi. HEART: Regular rate and rhythm without murmurs, rubs, gallops. ABDOMEN: Soft, nondistended abdomen. No guarding, no rebound. No masses appreciated. Normal bowel sounds present. No CVA tenderness bilaterally. + tenderness mid abd and LLQ. No tenderness to lower pelvic or at McBurney point. Thacker neg. Musculoskeletal: FROM to passive/active. Strength 5+/5. Extremities: No cyanosis, clubbing, or edema b/l. Peripheral pulses 2+. Capillary refill less than 3 seconds. NEUROLOGICAL: Normal speech, normal gait. Normal sensory, motor exams PSYCH: Normal mood, normal affect. SKIN: Warm, Dry, normal turgor, no rashes or lesions noted. Course - Re-evaluation Re-evalutation: 07/20/18 21:51 Patient is an afebrile, well-hydrated, 42-year-old female who presents to the emergency department with abdominal pain unspecified, suspect relation to constipation. Vitals are acceptable without significant tachycardia, tachypnea, or hypoxia. PE is otherwise unremarkable. Patient has no significant guarding or rebound to her abdomen. She is nontoxic-appearing and is able to tolerate p.o. without difficulty. CBC, CMP, lipase, urinalysis were unremarkable for acute pathology. CT scan unremarkable, but I did note stool throughout. No further labs or imaging warranted. Low suspicion/risk for acute appendicitis, bowel obstruction, acute cholecystitis, acute cholangitis, perforated diver ticulitis, incarcerated hernia, pancreatitis, perforated ulcer, peritonitis, sepsis, pelvic inflammatory disease, ectopic , tubo-ovarian abscess, ovarian torsion, or other systemic emergent condition at this time. Patient is aware that her condition can change from initial presentation and she needs to monitor symptoms closely and seek medical attention if any acute changes. Conservative measures otherwise for symptoms. Recheck with your PCM in 2-3 days. Consider consult with a intelligence applications. Return to the ED with any worsening/concerning symptoms otherwise as reviewed in discharge. Patient is in agreement. - Vital Signs Vital signs: Temp Pulse Resp BP Pulse Ox 98.0 F 72 20 170/109 H 98 07/20/18 18:42 07/20/18 18:42 07/20/18 18:42 07/20/18 18:42 07/20/18 18:42 - Laboratory Result Diagrams: 07/20/18 20:20 07/20/18 20:20 Laboratory results interpreted by me: 07/20/18 07/20/18 07/20/18 19:00 20:20 20:20 Hgb 16.0 H Glucose 214 H Urine Glucose (UA) >=500 H Urine Ketones TRACE H Ur Leukocyte Esterase TRACE H Discharge - Discharge Clinical Impression: Lower abdominal pain, unspecified Condition: Stable Disposition: HOME, SELF-CARE Instructions: Abdominal Pain ([facility]) Additional Instructions: Maintain adequate fluid and food intake [place] diet (B[employer] Bananas, rice, apples, toast, etc high fiber/water diet Stool softeners Zofran as needed tylenol if needed Monitor for any worsening symptoms Make sure you are staying hydrated enough to urinate and have normal BM's Recheck with your PCM in 2-3 days Consider consult with Gastroenterology for ongoing/worsening symptoms Return to the ED with any worsening symptoms and/or development of fever, headache, chest pain, palpitations, syncope, shortness of breath, trouble renee athing, abdominal pain, n/v/d, blood in stool/urine, weakness, or other worsening symptoms that are concerning to you. Prescriptions: Ondansetron [Zofran Odt 4 mg Tablet] 1 - 2 tab PO Q4H PRN #15 tab.rapdis PRN Reason: For Nausea/Vomiting Forms: Elevated Blood Pressure Referrals: CLAIR COELHO PA-C [Primary Care Provider] - Follow up as needed BLAS TAYLOR MD [ACTIVE STAFF] - Follow up as needed
[2018-07-20] MEDS ORDERED: KETOROLAC TROMETHAMINE INJ/PF 30 MG/1 ML SDV IV ONE (20:25)
[2018-07-20] MEDS ORDERED: METOCLOPRAMIDE HCL INJ/PF 10 MG/2 ML SDV IV ONE (20:25)
[2018-07-20 20:33] LABS: ABSOLUTE BASOPHILS # (AUTO) 0.1 10^3/uL (0.0-0.2); ABSOLUTE EOSINOPHILS # (AUTO) 0.1 10^3/uL (0.0-0.6); ABSOLUTE LYMPHOCYTES (AUTO) 2.3 10^3/uL (0.5-4.7); ABSOLUTE MONOCYTES (AUTO) 0.4 10^3/uL (0.1-1.4); ABSOLUTE NEUT (AUTO) 5.1 10^3/uL (1.7-8.2); BASOPHILS % (AUTO) 0.8 % (0-2); EOSINOPHILS % (AUTO) 1.2 % (0-6); LYMPHOCYTES % (AUTO) 28.8 % (13-45); MEAN CORPUSCULAR HGB CONC 35.4 g/dL (32.0-36.0); MEAN CORPUSCULAR VOLUME 88 fl (80-97); MONOCYTES % (AUTO) 5.3 % (3-13); PLATELET COUNT 233 10^3/uL (150-450); RED BLOOD COUNT 5.15 10^6/uL (3.72-5.28); RED CELL DISTRIBUTION WIDTH 13.5 % (11.5-14.0); SEGMENTED NEUTROPHILS % (AUTO) 63.9 % (42-78); TOTAL CELLS COUNTED % (AUTO) 100 %; WHITE BLOOD COUNT 7.9 10^3/uL (4.0-10.5)
[2018-07-20 20:47] LABS: ALANINE AMINOTRANSFERASE 27 U/L (9-52); ALBUMIN 4.3 g/dL (3.5-5.0); ALKALINE PHOSPHATASE 101 U/L (38-126); ANION GAP 9 (5-19); ASPARTATE AMINO TRANSFERASE 15 U/L (14-36); BILIRUBIN,DIRECT 0.3 mg/dL (0.0-0.4); BILIRUBIN,TOTAL 0.5 mg/dL (0.2-1.3); BLOOD UREA NITROGEN 15 mg/dL (7-20); CALCIUM 9.5 mg/dL (8.4-10.2); CARBON DIOXIDE 28 mmol/L (22-30); CHLORIDE 100 mmol/L (98-107); GLUCOSE 214 mg/dL (75-110); LIPASE 81.3 U/L (23-300); POTASSIUM 3.9 mmol/L (3.6-5.0); SODIUM 137.3 mmol/L (137-145)
--- NOTE | 2018-07-20 21:41 | RADIOLOGY REPORT (SQ) ---
EXAM DESCRIPTION: CT ABDOMEN PELVIS WITH IV CONTRAST COMPLETED DATE/TME: 07/20/2018 20:11 CLINICAL HISTORY: 42 years, Female, mid to left abd pain This exam was performed according to our departmental dose-optimization program which includes automated exposure control, adjustment of the mA and/or kVp according to patient size and/or use of iterative reconstruction technique where applicable. FINDINGS: Visualized lung bases are within normal limits. Liver, spleen, pancreas, gallbladder, adrenal glands and kidneys are within normal limits. No hydronephrosis or biliary dilatation. No dilated loops of bowel to suggest obstruction. Appendix is normal. No free fluid or free air. No abdominal or pelvic lymphadenopathy. Abdominal aorta is within normal limits. IMPRESSION: No acute disease.
[2018-07-20 22:10] VITALS: BP 176/114
== END 2018-07-20 22:10 | disposition home or self-care (01) ==
LOC: ER 18:27
DX: R10.30 Lower abdominal pain, unspecified (principal); R11.2 Nausea with vomiting, unspecified; I10 Essential (primary) hypertension; E11.9 Type 2 diabetes mellitus without complications; E66.9 Obesity, unspecified; F41.9 Anxiety disorder, unspecified; Z79.4 Long term (current) use of insulin
CPT/HCPCS: 99284; 96374; 96375; 36415; 87086; 83690; 85025; 80053; 81001; 74177; J1885; J2765

== ENCOUNTER 2018-08-23 08:27 | Emergency (ER) | payer BC ==
[2018-08-23] MEDS ORDERED: ACETAMINOPHEN 325 MG TABLET PO ONE (09:54)
[2018-08-23 09:55] VITALS: BP 164/110
--- NOTE | 2018-08-23 09:55 | RADIOLOGY REPORT (SQ) ---
EXAM DESCRIPTION: KNEE LEFT 4 VIEW COMPLETED DATE/TIME: 08/23/2018 9:33 am REASON FOR STUDY: pain COMPARISON: None. NUMBER OF VIEWS: Four views. TECHNIQUE: AP, lateral, and both oblique radiographic images acquired of the left knee. LIMITATIONS: None. FINDINGS: MINERALIZATION: Normal. BONES: No fracture dislocation. Superior and inferior patellar enthesophytes. JOINT: No effusion. SOFT TISSUES: No soft tissue swelling. Scattered soft tissue and vascular calcifications. OTHER: No other significant finding. IMPRESSION: No evidence of acute bony abnormality. TECHNICAL DOCUMENTATION: JOB ID: [id number] [employer]- All Rights Reserved Reading location - IP/workstation name: [email or web address]
--- NOTE | 2018-08-23 09:59 | ER Document Report ---
ED Extremity Problem, Lower - General Chief Complaint: Knee Pain Stated Complaint: KNEE PAIN Time Seen by Provider: 08/23/18 09:09 Primary Care Provider: [facility] [Provider Group] - Follow up as needed CLAIR COELHO PA-C [Primary Care Provider] - Follow up as needed Mode of Arrival: Ambulatory Information source: Patient Notes: 42-year-old female presents to ED for the left knee pain since last night. She states she was walking when she felt a pop. She states she did not fall she did not do anything else to it but it is been painful since then. Patient is a alert oriented respirations regular and unlabored speaking in full sentences walks with a limp due to the pain. She has high blood pressure. She states she always has high blood pressure and it is higher when she sees a doctor. Patient does have obvious peripheral vascular disease to both lower extremities. She states she has had surgeries to the veins on the left leg twice but the pain now is just in the knee not in the back of the leg. TRAVEL OUTSIDE OF THE [place] IN LAST 30 DAYS: No - HPI Patient complains to provider of: Pain, Swelling Location: Knee Occurred: Yesterday Where: Home, Indoors Onset/Duration: Sudden, Persistent Quality of pain: Achy Severity: Severe Pain Level: 5 Context: Other - She was walking and felt a pop Recent injury: Possibly Associated symptoms: Painful ambulation. 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 [employer] Lives with: Family Family History: Reviewed & Not Pertinent, CAD, DM, Hypertension, Other - No family history of aneurysms Patient has suicidal ideation: No Patient has homicidal ideation: No - Past Medical History Cardiac Medical History: Reports: Hx Hypertension, Hx Peripheral Vascular Disease Pulmonary Medical History: Reports: None EENT Medical History: Reports: None Neurological Medical History: Reports: Hx Migraine - 5 years, Hx Seizures Endocrine Medical History: Reports: Hx Diabetes Mellitus Type 2 Renal/ Medical History: Reports: None Malignancy Medical History: Reports: None GI Medical History: Reports: None Musculoskeletal Medical History: Reports Hx Musculoskeletal Deformity, Reports Hx Musculoskeletal Trauma Skin Medical History: Reports None Psychiatric Medical History: Reports: None Traumatic Medical History: Reports: None Infectious Medical History: Reports: None Past Surgical History: Reports: Hx Gynecologic Surgery - partial hysterectomy (still have L ovary), Hx Vascular Surgery - Vein surgery x2 left leg - Immunizations Immunizations up to date: Yes Hx Diphtheria, Pertussis, Tetanus Vaccination: Yes Hx Pneumococcal Vaccination: 05/09/14 Review of Systems - Review of Systems Constitutional: No symptoms reported EENT: No symptoms reported Cardiovascular: No symptoms reported Respiratory: No symptoms reported Gastrointestinal: No symptoms reported Genitourinary: No symptoms reported Female Genitourinary: No symptoms reported Musculoskeletal: Joint pain - Left knee felt it pop now it is hurting no swelling no bruising noted Skin: No symptoms reported Hematologic/Lymphatic: No symptoms reported Neurological/Psychological: No symptoms reported Physical Exam - Vital signs Vitals: Temp Pulse Resp BP Pulse Ox 97.9 F 81 20 154/100 H 100 08/23/18 08:32 08/23/18 08:32 08/23/18 08:32 08/23/18 08:32 08/23/18 08:32 Interpretation: Normal - General General appearance: Appears well, Alert - HEENT Head: Normocephalic, Atraumatic Eyes: Normal Pupils: PERRL - Respiratory Respiratory status: No respiratory distress Chest status: Nontender Breath sounds: Normal Chest palpation: Normal - Cardiovascular Rhythm: Regular Heart sounds: Normal auscultation Murmur: No - Abdominal Inspection: Normal Distension: No distension Bowel sounds: Normal Tenderness: Nontender Organomegaly: No organomegaly - Back Back: Normal, Nontender - Extremities General upper extremity: Normal inspection, Nontender, Normal color, Normal ROM, Normal temperature General lower extremity: Normal inspection, Normal color, Normal ROM, Normal temperature, Normal weight bearing. No: Danuta's sign Knee: Tender, Pain with ROM, Patellar tendon intact, Tender joint line. No: Abrasion, Deformity, Dislocation, Drawer's test instability, Ecchymosis, Instability, Joint effusion, Laceration, Laxity with valgus stress, Laxity with varus stress, Popliteal fossa tender, Unable to bear weight - Neurological Neuro grossly intact: Yes Cognition: Normal Orientation: AAOx4 [place] Coma Scale Eye Opening: Spontaneous Leona Coma Scale Verbal: Oriented [place] Coma Scale Motor: Obeys Commands [place] Coma Scale Total: 15 Speech: Normal Motor strength normal: LUE, RUE, LLE, RLE Sensory: Normal - Psychological Associated symptoms: Normal affect, Normal mood - Skin Skin Temperature: Warm Skin Moisture: Dry Skin Color: Normal Course - Re-evaluation Re-evalutation: 08/23/18 10:41 Patient was seen today for left knee pain. X-ray is negative for any acute changes. Patient was treated with Finesse wrap. She states she could not use crutches. She does have elevated blood pressure. She was instructed to take her medications as instructed and to follow-up with her primary and orthopedic physicians. She was given the name and number of [facility] for surgery to follow-up with. Patient was given a work note to go back to work on Tuesday so she could rest and elevate her knee. - Vital Signs Vital signs: Temp Pulse Resp BP Pulse Ox 97.9 F 81 20 164/110 H 100 08/23/18 08:32 08/23/18 08:32 08/23/18 08:32 08/23/18 09:54 08/23/18 08:32 - Diagnostic Test Radiology reviewed: Image reviewed, Reports reviewed Procedures - Immobilization Left Knee Time completed: 10:10 Pre-Proc Neuro Vasc Exam: Normal Immobilizer type: Finesse wrap Performed by: PCT Post-Proc Neuro Vasc Exam: Normal Alignment checked and good: Yes Discharge - Discharge Clinical Impression: Left knee pain Qualifiers: Chronicity: acute Qualified Code(s): M25.562 - Pain in left knee Condition: Stable Disposition: HOME, SELF-CARE Additional Instructions: You were seen today for left knee pain. X-ray is negative for any acute changes. FINESSE WRAP: A compression dressing (finesse wrap) has been placed. This helps hold the area still. It limits swelling and internal bleeding. The wrap should be comfortably snug -- not tight. You should feel a sense of pressure, but not severe pain under the wrap. Unless the physician tells you otherwise, you can adjust the wrap for comfort. If the wrap causes symptoms suggesting it's too tight -- uncomfortable pressure, swelling or discoloration beyond the wrap, numbness, or severe pain -- you must loosen the wrap. If these symptoms don't resolve promptly, return for re-evaluation. ICE & ELEVATION: Apply ice packs frequently against the painful area. Many different schedules are recommended, such as "20 minutes on, 20 minutes off" or "one hour ice, two hours rest." If you need to work, you may need to go longer between ice treatments. You should plan to have the area ice packed AT LEAST one-fourth of the time. The ice should be applied over the wrap, tape, or splint, or over a layer of cloth -- not directly against the skin. Some ice bags have a built-in cloth and can be put directly on the skin. Your injured part should be elevated as much as possible over the next 48 hours. Try to keep the injury above the level of the heart. Avoid use of the injured area. Elevation and rest will decrease the swelling. Acetaminophen Acetaminophen may be taken for pain relief or fever control. It's much safer than aspirin, offering a wider range of "safe" dosages. It is safe during . Some brand names are Tylenol, Panadol, Datril, Anacin 3, Tempra, and Liquiprin. Acetaminophen can be repeated every four hours. The following are maximum recommended dosages: WEIGHT Dose Drops Elixir Chewable(80mg) (LBS.) drprs=droppers tsp=teaspoon 6 40 mg .4 ml (1/2) 6-11 80 mg .8 ml (full) 1/2 tsp 1 tab 12-16 120 mg 1 1/2 drprs 3/4 tsp 1 1/2 tabs 17-23 160 mg 2 drprs 1 tsp 2 tabs 24-30 240 mg 3 drprs 1 1/2 tsp 3 tabs 30-35 320 mg 2 tsp 4 tabs 36-41 360 mg 2 1/4 tsp 4 1/2 tabs 42-47 400 mg 2 1/2 tsp 5 tabs 48-53 480 mg 3 tsp 6 tabs 54-59 520 mg 3 1/4 tsp 6 1/2 tabs 60-64 560 mg 3 1/2 tsp 7 tabs 65-70 600 mg 3 3/4 tsp 7 1/2 tabs 71-76 640 mg 4 tsp 8 tabs 77-82 720 mg 4 1/2 tsp 9 tabs 83-88 800 mg 5 tsp 10 tabs >89 pounds or adults 650 mg to 900 mg Acetaminophen can be repeated every four hours. Maximum daily dose not to exceed 4000 mg. These maximum recommended dosages are slightly higher than the dosages written on the product container, but these dosages are very safe and well below the toxic dosage for acetaminophen. FOLLOW-UP CARE: If you have been referred to a physician for follow-up care, call the physicians office for an appointment as you were instructed or within the next two days. If you experience worsening or a significant change in your symptoms, notify the physician immediately or return to the Emergency Department at any time for re-evaluation. Forms: Elevated Blood Pressure, Return to Work Referrals: CLAIR COELHO PA-C [Primary Care Provider] - Follow up as needed [facility] [Provider [facility]] - Follow up as needed
== END 2018-08-23 10:50 | disposition home or self-care (01) ==
LOC: ER 08:27
DX: M25.562 Pain in left knee (principal); I10 Essential (primary) hypertension; E11.9 Type 2 diabetes mellitus without complications; Z90.710 Acquired absence of both cervix and uterus
CPT/HCPCS: 99283

== ENCOUNTER 2018-11-30 16:34 | Emergency (ER) | payer BC ==
[2018-11-30] MEDS ORDERED: ASPIRIN 81 MG TABLET, CHEWABLE PO ONE (17:18)
--- NOTE | 2018-11-30 17:52 | RADIOLOGY REPORT (SQ) ---
EXAM DESCRIPTION: CHEST SINGLE VIEW COMPLETED DATE/TIME: 11/30/2018 5:42 pm REASON FOR STUDY: CP COMPARISON: 06/18/2018 EXAM PARAMETERS: NUMBER OF VIEWS: One view. TECHNIQUE: Single frontal radiographic view of the chest acquired. RADIATION DOSE: NA LIMITATIONS: None. FINDINGS: LUNGS AND PLEURA: No opacities, masses or pneumothorax. No pleural effusion. MEDIASTINUM AND HILAR STRUCTURES: No masses. Contour normal. HEART AND VASCULAR STRUCTURES: Heart normal in size. Normal vasculature. BONES: No acute findings. HARDWARE: None in the chest. OTHER: No other significant finding. IMPRESSION: NO ACUTE RADIOGRAPHIC FINDING IN THE CHEST. TECHNICAL DOCUMENTATION: JOB ID: [id number] [employer]- All Rights Reserved Reading location - IP/workstation name: [email or web address]
--- NOTE | 2018-11-30 18:17 | ER Document Report ---
ED Medical Screen (RME) - General Chief Complaint: Chest Pain Stated Complaint: CHEST PAIN Time Seen by Provider: 11/30/18 17:18 Primary Care Provider: CLAIR COELHO PA-C [Primary Care Provider] - Follow up as needed Notes: Patient is a 43-year-old female history of diabetes presents to the emergency department for generalized chest pain with pain radiating down her left arm. 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 States at one point time she feels as though her lips were getting numb. Patient also voices that she feels as though she was breathing really fast when that happened. She is currently denying back complaint, only complaining of generalized chest pain. GENERAL: Alert, interacts well. No acute distress. LUNGS: Clear to auscultation bilaterally, no wheezes, rales, or rhonchi. No respiratory distress. HEART: Regular rate and rhythm. No murmur I have greeted and performed a rapid initial assessment of this patient. A comprehensive ED assessment and evaluation of the patient, analysis of test results and completion of the medical decision making process will be conducted by additional ED providers. I have specifically instructed the patient or family members with the patient to immediately return to any nursing staff should anything change in the patient's condition or with their chief complaint. This medical record was dictated with voice recognizing software. There may be grammatical, syntax errors that are unintended. TRAVEL OUTSIDE OF THE [place] IN LAST 30 DAYS: No - Related Data Allergies/Adverse Reactions: No Known Allergies Allergy (Verified 08/23/18 08:28) Past Medical History - Social History Chew tobacco use (# tins/day): No Frequency of alcohol use: None Drug Abuse: None - Past Medical History Cardiac Medical History: Reports: Hx Hypertension, Hx Peripheral Vascular Disease Neurological Medical History: Reports: Hx Migraine - 5 years, Hx Seizures Endocrine Medical History: Reports: Hx Diabetes Mellitus Type 2 Renal/ Medical History: Denies: Hx Peritoneal Dialysis Musculoskeltal Medical History: Reports Hx Musculoskeletal Deformity, Reports Hx Musculoskeletal Trauma Past Surgical History: Reports: Hx Gynecologic Surgery - partial hysterectomy (still have L ovary), Hx Hysterectomy, Hx Vascular Surgery - Vein surgery x2 left leg - Immunizations Immunizations up to date: Yes Hx Diphtheria, Pertussis, Tetanus Vaccination: Yes Physical Exam - Vital signs Vitals: Temp Pulse Resp BP Pulse Ox 97.5 F 81 16 160/111 H 96 11/30/18 16:50 11/30/18 16:50 11/30/18 16:50 11/30/18 16:50 11/30/18 16:50 Course - Vital Signs Vital signs: Temp Pulse Resp BP Pulse Ox 97.5 F 81 16 160/111 H 96 11/30/18 16:50 11/30/18 16:50 11/30/18 16:50 11/30/18 16:50 11/30/18 16:50 - Laboratory Result Diagrams: 11/30/18 18:10 11/30/18 18:10 Doctor's Discharge - Discharge Referrals: CLAIR COELHO PA-C [Primary Care Provider] - Follow up as needed
[2018-11-30 18:20] LABS: ABSOLUTE BASOPHILS # (AUTO) 0.1 10^3/uL (0.0-0.2); ABSOLUTE EOSINOPHILS # (AUTO) 0.1 10^3/uL (0.0-0.6); ABSOLUTE LYMPHOCYTES (AUTO) 2.4 10^3/uL (0.5-4.7); ABSOLUTE MONOCYTES (AUTO) 0.5 10^3/uL (0.1-1.4); ABSOLUTE NEUT (AUTO) 5.3 10^3/uL (1.7-8.2); BASOPHILS % (AUTO) 1.1 % (0-2); EOSINOPHILS % (AUTO) 1.1 % (0-6); HEMATOCRIT 44.9 % (36.0-47.0); HEMOGLOBIN 15.3 g/dL (12.0-15.5); LYMPHOCYTES % (AUTO) 28.8 % (13-45); MEAN CORPUSCULAR HEMOGLOBIN 29.8 pg (27.0-33.4); MEAN CORPUSCULAR HGB CONC 34.1 g/dL (32.0-36.0); MEAN CORPUSCULAR VOLUME 88 fl (80-97); MONOCYTES % (AUTO) 5.6 % (3-13); PLATELET COUNT 255 10^3/uL (150-450); RED BLOOD COUNT 5.14 10^6/uL (3.72-5.28); RED CELL DISTRIBUTION WIDTH 13.6 % (11.5-14.0); SEGMENTED NEUTROPHILS % (AUTO) 63.4 % (42-78); TOTAL CELLS COUNTED % (AUTO) 100 %; WHITE BLOOD COUNT 8.3 10^3/uL (4.0-10.5)
[2018-11-30 18:52] LABS: ALANINE AMINOTRANSFERASE 28 U/L (9-52); ALBUMIN 4.2 g/dL (3.5-5.0); ALKALINE PHOSPHATASE 101 U/L (38-126); ANION GAP 10 (5-19); ASPARTATE AMINO TRANSFERASE 22 U/L (14-36); BILIRUBIN,DIRECT 0.2 mg/dL (0.0-0.4); BILIRUBIN,TOTAL 0.4 mg/dL (0.2-1.3); BLOOD UREA NITROGEN 16 mg/dL (7-20); CALCIUM 9.3 mg/dL (8.4-10.2); CARBON DIOXIDE 27 mmol/L (22-30); CHLORIDE 102 mmol/L (98-107); CREATINE KINASE 72 U/L (30-135); GLUCOSE 177 mg/dL (75-110); POTASSIUM 4.3 mmol/L (3.6-5.0); TOTAL PROTEIN 7.1 g/dL (6.3-8.2)
[2018-11-30 18:53] LABS: CREATINE KINASE MB 1.21 ng/mL (<4.55)
[2018-11-30 18:54] LABS: TROPONIN I < 0.012 ng/mL
[2018-11-30] MEDS ORDERED: ONDANSETRON 4 MG TAB.RAPDIS PO ONE (19:00)
[2018-11-30] MEDS ORDERED: MORPHINE SULFATE 10 MG/ML INJ ONE (20:21)
[2018-11-30] MEDS ORDERED: MORPHINE SULFATE 10 MG/ML INJ IV ONE ×2 (20:24→21:35)
--- NOTE | 2018-11-30 20:27 | ER Document Report ---
ED General - General Chief Complaint: Chest Pain Stated Complaint: CHEST PAIN Time Seen by Provider: 11/30/18 17:18 Primary Care Provider: CLAIR COELHO PA-C [Primary Care Provider] - Follow up as needed Mode of Arrival: Ambulatory Information source: [facility], [facility] Records Notes: 43-year-old female with hypertension, type 2 diabetes (on metformin at thousand milligrams daily and Humalog 45 units at night), previous CVA at the age of 23 presents with complaint of left-sided chest pain and left arm pain that started just prior to arrival. 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 Patient also complaining of periorbital paresthesias. She denies headache, visual changes, vomiting, abdominal pain. She does report associated diaphoresis and shortness of breath that has now resolved. Patient has had prior similar symptoms but states that she is never experienced pain this bad before. TRAVEL OUTSIDE OF THE [place] IN LAST 30 DAYS: No - HPI Onset: Just prior to arrival Onset/Duration: Sudden Quality of pain: Pressure Severity: Moderate Associated symptoms: Chest pain, Nausea, Shortness of breath, Sweating Exacerbated by: Denies Relieved by: Denies Similar symptoms previously: Yes Recently seen / treated by doctor: No - Related Data Allergies/Adverse Reactions: No Known Allergies Allergy (Verified 08/23/18 08:28) Past Medical History - General Information source: Patient - Social History Smoking Status: Never Smoker Chew tobacco use (# tins/day): No Frequency of alcohol use: None Drug Abuse: None Lives with: Spouse/Significant other Family History: Reviewed & Not Pertinent, CAD, DM, Hypertension, Other - No fami ly history of aneurysms Patient has suicidal ideation: No Patient has homicidal ideation: No - Past Medical History Cardiac Medical History: Reports: Hx Hypertension, Hx Peripheral Vascular Disease Neurological Medical History: Reports: Hx Migraine - 5 years, Hx Seizures Endocrine Medical History: Reports: Hx Diabetes Mellitus Type 2 Renal/ Medical History: Denies: Hx Peritoneal Dialysis Musculoskeletal Medical History: Reports Hx Musculoskeletal Deformity, Reports Hx Musculoskeletal Trauma Past Surgical History: Reports: Hx Gynecologic Surgery - partial hysterectomy (still have L ovary), Hx Hysterectomy, Hx Vascular Surgery - Vein surgery x2 left leg - Immunizations Immunizations up to date: Yes Hx Diphtheria, Pertussis, Tetanus Vaccination: Yes Hx Pneumococcal Vaccination: 05/09/14 Review of Systems - Review of Systems Notes: REVIEW OF SYSTEMS: CONSTITUTIONAL : Denies fever, chills, or sweats. Denies recent illness. Denies weight loss, recent hospitalizations. EENT: Denies visual changes, eye pain. Denies sore throat, oral lesions, difficulty swallowing. CARDIOVASCULAR: + chest pain. Denies palpitations. Denies lower extremity edema. RESPIRATORY: Denies cough. + shortness of breath, denies wheezing. GASTROINTESTINAL: Denies abdominal pain or distention. Denies vomiting, or diarrhea. Denies blood in vomitus, stools, or per rectum. Denies black, tarry stools. Denies constipation. GENITOURINARY: Denies difficulty urinating, painful urination, frequency, blood in urine, or vaginal discharge. MUSCULOSKELETAL: Denies back or neck pain or stiffness. Denies joint pain or swelling. SKIN: Denies rash, lesions or sores. HEMATOLOGIC : Denies easy bruising or bleeding. LYMPHATIC: Denies swollen glands. NEUROLOGICAL: Denies confusion or altered mental status. Denies loss of consciousness. Denies dizziness or lightheadedness. Denies headache. Denies weakness or paralysis. Denies problems difficulty with ambulation, slurred speech. Denies sensory loss, + numbness, or tingling. Denies seizures. PSYCHIATRIC: Denies anxiety or stress. Denies depression, suicidal ideation, o r homicidal ideation. Denies visual or auditory hallucinations. PHYSICAL EXAMINATION: GENERAL: Well-appearing, well-nourished and in no acute distress. HEAD: Atraumatic, normocephalic. EYES: Pupils equal round and reactive to light, extraocular movements intact, conjunctiva are normal. ENT: Nares patent, oropharynx clear without exudates. Moist mucous membranes. NECK: Normal range of motion, supple without lymphadenopathy LUNGS: Breath sounds clear to auscultation bilaterally and equal. No wheezes rales or rhonchi. HEART: Regular rate and rhythm without murmurs ABDOMEN: Soft, nontender, nondistended abdomen. No guarding, no rebound. No masses appreciated. Female : deferred Musculoskeletal: Normal range of motion, no pitting or edema. No cyanosis. Decreased log turner strength in the left upper extremity4/5 NEUROLOGICAL: Cranial nerves grossly intact. Normal speech, normal gait. Normal sensory, motor exams. NIH 0. PSYCH: Normal mood, normal affect. SKIN: Warm, Dry, normal turgor, no rashes or lesions noted. Physical Exam - Vital signs Vitals: Temp Pulse Resp BP Pulse Ox 97.5 F 81 16 160/111 H 96 11/30/18 16:50 11/30/18 16:50 11/30/18 16:50 11/30/18 16:50 11/30/18 16:50 Course - Re-evaluation Re-evalutation: Laboratory 11/30/18 11/30/18 11/30/18 18:10 18:10 18:10 WBC 8.3 RBC 5.14 Hgb 15.3 Hct 44.9 MCV 88 MCH 29.8 MCHC 34.1 RDW 13.6 Plt Count 255 Seg Neutrophils % 63.4 Lymphocytes % 28.8 Monocytes % 5.6 Eosinophils % 1.1 Basophils % 1.1 Absolute Neutrophils 5.3 Absolute Lymphocytes 2.4 Absolute Monocytes 0.5 Absolute Eosinophils 0.1 Absolute Basophils 0.1 Sodium 139.0 Potassium 4.3 Chloride 102 Carbon Dioxide 27 Anion Gap 10 BUN 16 Creatinine 0.70 Est GFR ( Amer) > 60 Est GFR (Non-Af Amer) > 60 Glucose 177 H Calcium 9.3 Total Bilirubin 0.4 Direct Bilirubin 0.2 Neonat Total Bilirubin Not Reportable Neonat Direct Bilirubin Not Reportable Neonat Indirect Bili Not Reportable AST 22 ALT 28 Alkaline Phosphatase 101 Creatine Kinase 72 CK-MB (CK-2) 1.21 Troponin I < 0.012 Total Protein 7.1 Albumin 4.2 11/30/18 20:50 WBC RBC Hgb Hct MCV MCH MCHC RDW Plt Count Seg Neutrophils % Lymphocytes % Monocytes % Eosinophils % Basophils % Absolute Neutrophils Absolute Lymphocytes Absolute Monocytes Absolute Eosinophils Absolute Basophils Sodium Potassium Chloride Carbon Dioxide Anion Gap BUN Creatinine Est GFR ( Amer) Est GFR (Non-Af Amer) Glucose Calcium Total Bilirubin Direct Bilirubin Neonat Total Bilirubin Neonat Direct Bilirubin Neonat Indirect Bili AST ALT Alkaline Phosphatase Creatine Kinase CK-MB (CK-2) Troponin I < 0.012 Total Protein Albumin Chest X-Ray 11/30/18 17:18 IMPRESSION: NO ACUTE RADIOGRAPHIC FINDING IN THE CHEST. Head CT 11/30/18 20:22 IMPRESSION: 1. No acute intracranial abnormality by CT criteria. This exam was performed according to our departmental dose-optimization program, which includes automated exposure control, adjustment of the mA and/or kV according to patient size and/or use of iterative reconstruction technique. Temp Pulse Resp BP Pulse Ox 97.5 F 77 16 166/103 H 98 11/30/18 16:50 11/30/18 21:07 11/30/18 21:07 11/30/18 21:07 11/30/18 21:07 11/30/18 20:34 Nurse reports that during the administration of her Zofran patient had abnormal facial movements. Patient does report a history of well-controlled seizures. She states she has not had a seizure in many years and took herself off of her seizure medication. Nurse question the patient regarding her facial twitching and patient reports that her seizures in the past were similar. 11/30/18 21:30 CT called and reported patient having seizure-like activity with shaking in her lower extremities. Upon my arrival to CT the patient is awake, alert has no urinary incontinence, tongue laceration. She does not appear to be postictal. Patient appears to be sleeping every time she is checked on. 11/30/18 21:35 I Witnessed patient's lower extremity shaking on reevaluation. She immediately awakens from this. Does not appear to be seizure-like activity. Patient still complaining of left-sided chest pain. Additional 4 mg of morphine administered. IV metoprolol administered. 11/30/18 21:41 Review of patient's medical records show that the patient is on oxycodone 10 mg 3 times daily as needed and buprenorphine every 7 days. 11/30/18 21:42 11/30/18 21:55 Patient consistently asking for pain medication. Repeat EKG performed with delta troponin and shows the patient be in sinus rhythm with left ventricular hypertrophy unchanged from previous. Cardiac enzymes and delta troponin are within normal limits. Urinalysis and urine drug screen pending. 11/30/18 21:57 Patient reporting decreased sensation to her left lower extremity which is discolored, and the reason why she undergoes pain management. 11/30/18 22:05 11/30/18 22:07 Repeat NIH performed and still 0. 11/30/18 22:20 Patient reevaluated and now states she is dizzy. Patient has had a new complaint every time I have reevaluated her. She sits up independently and ambulates without difficulty. Patient offered an MRI if she felt uncomfortable with discharge home but she states that "I am ready to go home". Patient was pr ovided copies of her imaging and lab work that were performed today. Urinalysis without evidence of infection, urine drug screen positive for opiates. - Vital Signs Vital signs: Temp Pulse Resp BP Pulse Ox 97.5 F 77 16 166/103 H 98 11/30/18 16:50 11/30/18 21:07 11/30/18 21:07 11/30/18 21:07 11/30/18 21:07 - Laboratory Result Diagrams: 11/30/18 18:10 11/30/18 18:10 Laboratory results interpreted by me: 11/30/18 11/30/18 18:10 21:40 Glucose 177 H Urine Protein 100 H Urine Ketones TRACE H - Diagnostic Test Radiology reviewed: Image reviewed, Reports reviewed - EKG Interpretation by Me EKG shows normal: Sinus rhythm Rate: Normal Rhythm: NSR Voltage: Consistant with LVH - Left atrial abnormality When compared to previous EKG there are: No significant change Discharge - Discharge Clinical Impression: Chest pain of uncertain etiology, Chronic prescription opiate use, Nausea, Paresthesia and pain of left extremity, Diabetes 1.5, managed as type 2 Hypertension Qualifiers: Hypertension type: unspecified Qualified Code(s): I10 - Essential (primary) hypertension Condition: Good Disposition: HOME, SELF-CARE Instructions: Chronic Pain Control ([facility]), Chest Pain of Unclear Cause ([facility]), Numbness or Paresthesia ([facility]) Additional Instructions: You were seen today for chest pain. The exact cause of your pain is unclear. However, based on your cardiac enzyme testing, chest x-ray, and EKG it does not appear that it is from an immediately life-threatening cause at this time. Although your testing here is normal is critical that you follow-up with your primary care physician for continued evaluation of this chest pain and possible stress testing. I recommended you see your physician within the next 24-48 h ours to be evaluated for consideration of a stress test. Please return to emergency department immediately if you have worsening of your chest pain, shortness of breath, vomiting, become unable to exert yourself due to pain or difficulty breathing, you pass out, or have any pain that radiates into your arms, jaw, or back. Please also return if you have any additional symptoms that are concerning to you. Prescriptions: Ondansetron [Zofran Odt 4 mg Tablet] 1 - 2 tab PO Q4H PRN #15 tab.rapdis PRN Reason: For Nausea/Vomiting Forms: Elevated Blood Pressure Referrals: CLAIR COELHO PA-C [Primary Care Provider] - Follow up as needed ED NIH Stroke Scale - NIH Stroke Scale *: 1. NIH scale should be completed with appropriate accompanying assessment tools. *: 2. The NIH should reflect what the patient is capable of doing and should not be coached by the clinician. 1a. Level of Consciousness: 0=Alert;keenly responsive -: 1=Drowsy -: 2=Obtunded -: 3=Coma/unresponsive or reflex to noxious stimuli. 1a. Responses: 0 1b. Orientation Questions: a. What month is it? -: b. How old are you? -: 0=Answers both questions correctly. -: 1=Answers one question correctly or patient is intubated or has orotracheal trauma. -: 2=Answers neither question correctly. 1b. Responses: 0 1c. Response to commands: a. Open and close eyes? -: b. Carton Filler and release hand? -: Credit is given despite weakness. Demonstration of task is permitted. Substitute command if hands cannot be used. -: 0=Performs both tasks correctly -: 1=Performs one task correctly -: 2=Performs neither task correctly 1c. Responses: 0 2. Gaze: Establish eye contact and instruct patient to "Follow my finger" -: 0=Normal -: 1=Partial gaze palsy. Gaze is abnormal in one or both eyes, but where forced deviation or total gaze paresis is not present. -: 2=Forced deviation or total gaze paresis. 2. Responses: 0 3. Visual Stovall: Sees fingers in all four quadrants. -: 0=No visual loss. -: 1=Partial hemianopsia. -: 2=Complete hemianopsia. -: 3=Bilateral hemianopsia (including Cortical blindness) 3. Responses: 0 4. Facial Movement: Instruct patient to: -: a. Show me your teeth -: b. Raise your eyebrows -: c. Close your eyes -: d. Smile -: 0=Normal symmetrical movement -: 1=Minor paralysis (flattened nasolabial fold, asymmetry on smiling). -: 2=Partial paralysis (total or near total paralysis of lower face). -: 3=Complete paralysis of upper and lower face 4. Responses: 0 5. Motor functions (left arm): Alternate sides and extend each arm with palms down (90 degrees if sitting or 45 degrees for supine). -: 0=No drift;limb holds for full 10 seconds. -: 1=Drift; limb holds but drifts down before full 10 seconds, but does not hit bed. -: 2=Some effort against gravity; limb cannot get to or maintain position. -: 3=No effort against gravity; limb falls. -: 4=No movement. -: UN=Amputation, joint fusion, explain in comments. 5. Responses (left arm): 0 5. Motor Functions (right arm): Alternate sides and extend each arm with palms down (90 degrees if sitting or 45 degrees for supine). -: 0=No drift;limb holds for full 10 seconds. -: 1=Drift; limb holds but drifts down before full 10 seconds, but does not hit bed. -: 2=Some effort against gravity; limb cannot get to or maintain position. -: 3=No effort against gravity; limb falls. -: 4=No movement. -: UN=Amputation, joint fusion, explain in comments. 5. Responses (right arm): 0 6. Motor Functions (left leg): With patient lying supine, alternate sides and extend each leg (30 degrees always while supine). -: 0=No drift, leg holds position for full 5 seconds -: 1=Drift; leg falls before full 5 seconds but does not hit bed. -: 2=Some effort against gravity, leg falls to bed but some effort against gravity. -: 3=No effort against gravity, leg falls to bed immediately. -: 4=No movement. -: UN=Amputation, joint fusion; explain in comments. 6. Responses (left leg): 0 6. Motor Functions (right leg): With patient lying supine, alternate sides and extend each leg (30 degrees always while supine). -: 0=No drift, leg holds position for full 5 seconds -: 1=Drift; leg falls before full 5 seconds but does not hit bed. -: 2=Some effort against gravity, leg falls to bed but some effort against gravity. -: 3=No effort against gravity, leg falls to bed immediately. -: 4=No movement. -: UN=Amputation, joint fusion; explain in comments. 6. Responses (right leg): 0 7. Limb Ataxia: With eyes open instruct patient to: -: a. "Touch your finger to your nose". -: b. "Touch your heel to your pedraza" -: 0=Absent -: 1=Present in one limb. -: 2=Present in two limbs. -: UN=Amputation or joint fusion; explain in comments. 7. Responses: 0 8. Sensory: Test sensation using pinprick or noxious stimuli. Test as many body parts as possible. -: 0=Normal;no sensory loss -: 1=Mile to moderate sensory loss (patient feels pin prick but is less sharp on affected side). -: 2=Severe or total sensory loss. 8. Responses: 0 9. Best Language: Instruct patient to: -: a. "Describe what you see in this picture." -: b. "Name the items in this picture." -: c. "Read these sentences." -: 0=No aphasia, normal -: 1=Mild to moderate aphasia. -: 2=Severe aphasia -: 3=Mute, global aphasia, no usable speech or auditory comprehension. 9. Responses: 0 10. Articulation, Dysarthia: Instruct patient to: -: "Read these words" or "Repeat these words" -: 0=Normal -: 1=Mild to moderate; patient may slur some words but can be understood without difficulty. -: 2=Severe; patients speech so slurred as to be unintelligible in the absence of dysphasia. -: UN=Intubated or other physical barrier, explain in comments. 10. Responses: 0 11. Extinction or inattention: 0=No abnormality -: 1= Visual, tactile, auditory, spatial, or personal inattention or extinction to bilateral simulation in one or the sensory modalities. -: 2=Profound yanet-inattention or yanet-inattention to more than one modality; does not recognize own hand. 11. Responses: 0 Total Score: 0
[2018-11-30] MEDS ORDERED: LORAZEPAM INJ 2 MG/1 ML VIAL IV ONE (20:32)
[2018-11-30 21:08] VITALS: BP 166/103
[2018-11-30] MEDS ORDERED: NORMAL SALINE 1000 ML 1,000 ML IV ONE (21:12)
[2018-11-30] MEDS ORDERED: METOPROLOL TARTRATE PF/INJ 5 MG/5 ML SDV IV ONE (21:34)
--- NOTE | 2018-11-30 21:44 | RADIOLOGY REPORT (SQ) ---
EXAM DESCRIPTION: CT HEAD WITHOUT IV CONTRAST COMPLETED DATE/TME: 11/30/2018 20:22 CLINICAL HISTORY: facial numbness COMPARISON: None available TECHNIQUE: Axial CT of the head obtained from the skull apex to the skull base without contrast. FINDINGS: No acute intracranial hemorrhage identified. No mass, mass effect, shift of the midline, abnormal extra-axial fluid collection or CT evidence of acute ischemic change identified. The ventricular system and sulcal spaces are mildly enlarged compatible with mild cerebral atrophy. Scattered areas of hypodensity throughout the supratentorial white matter are nonspecific and may be related to chronic small vessel ischemic change. The visualized paranasal sinuses and the mastoids are clear. No skull fracture identified. Visualized orbits and globes are unremarkable. Atherosclerotic calcification of the intracranial internal carotid arteries. DLP: 2127 mGy-cm IMPRESSION: 1. No acute intracranial abnormality by CT criteria. This exam was performed according to our departmental dose-optimization program, which includes automated exposure control, adjustment of the mA and/or kV according to patient size and/or use of iterative reconstruction technique.
[2018-11-30 21:59] LABS: APPEARANCE,URINE SLIGHTLY-CLOUDY; BILIRUBIN,URINE NEGATIVE (NEGATIVE); COLOR,URINE AMBER; GLUCOSE, URINE NEGATIVE (NEGATIVE); KETONES,URINE TRACE mg/dL (NEGATIVE); LEUKOCYTE ESTERASE,URINE NEGATIVE (NEGATIVE); NITRITE,URINE NEGATIVE (NEGATIVE); PROTEIN,URINE 100 mg/dL (NEGATIVE); URINE SPECIFIC GRAVITY 1.034; UROBILINOGEN,URINE NEGATIVE mg/dL (<2.0)
[2018-11-30] MEDS ORDERED: LEVETIRACETAM 500 MG/NACL-ISO 500 MG/100 ML RTUPB IV SCH (22:00)
[2018-11-30] MEDS ORDERED: METOPROLOL TARTRATE 50 MG TABLET PO ONE (22:08)
[2018-11-30 22:09] LABS: URINE AMPHETAMINES SCREEN NEGATIVE; URINE BARBITURATES SCREEN NEGATIVE; URINE BENZODIAZEPINES SCREEN NEGATIVE; URINE COCAINE SCREEN NEGATIVE; URINE MARIJUANA (THC) SCREEN NEGATIVE; URINE METHADONE SCREEN NEGATIVE; URINE PHENCYCLIDINE SCREEN NEGATIVE
--- NOTE | 2018-12-01 10:09 | EKG REPORT ---
SEVERITY:- ABNORMAL ECG - SINUS RHYTHM PROBABLE LEFT VENTRICULAR HYPERTROPHY BORDERLINE T ABNORMALITIES, INFERIOR LEADS : Confirmed by: Elly Richter 01-Dec-2018 10:08:47
--- NOTE | 2018-12-02 23:11 | EKG REPORT ---
SEVERITY:- ABNORMAL ECG - SINUS RHYTHM PROBABLE LEFT ATRIAL ABNORMALITY PROBABLE LEFT VENTRICULAR HYPERTROPHY : Confirmed by: Elly Richter 02-Dec-2018 23:10:38
== END 2018-11-30 22:29 | disposition home or self-care (01) ==
LOC: ER 16:34
DX: R20.2 Paresthesia of skin (principal); R07.9 Chest pain, unspecified; R11.0 Nausea; R06.02 Shortness of breath; F11.20 Opioid dependence, uncomplicated; R42 Dizziness and giddiness; I10 Essential (primary) hypertension; E13.9 Other specified diabetes mellitus without complications; Z79.4 Long term (current) use of insulin; Z79.84 Long term (current) use of oral hypoglycemic drugs; Z90.710 Acquired absence of both cervix and uterus
CPT/HCPCS: 93005; 96376; 99285; 96361; 96374; 96375; 36415; 82553; 82550; 85025; 80053; 81001; 84484; 80307; 71045; 70450; 93010; S0119; J3490; J2270; J2060; J7030

== ENCOUNTER 2019-02-22 16:02 | Emergency (ER) | payer BC ==
[2019-02-22 16:48] VITALS: BP 168/115
--- NOTE | 2019-02-22 17:23 | ER Document Report ---
ED Medical Screen (RME) - General Chief Complaint: Leg Pain Stated Complaint: LEFT LEG PAIN Time Seen by Provider: 02/22/19 17:19 Primary Care Provider: CLAIR COELHO PA-C [Primary Care Provider] - Follow up as needed Mode of Arrival: Ambulatory Information source: Patient Notes: 43-year-old female presented to ED for complaint of left leg pain. She states she always has leg pain due to her varicose veins but she has a different pain that is like a charley horse when she came home last night. States she does not have a charley horse is just the pain like a charley horse. She states she did not do anything different yesterday than normal. She is alert oriented respirations regular and unlabored speaking in full sentences. She does have a history of varicose veins. I have greeted and performed a rapid initial assessment of this patient. A comprehensive ED assessment and evaluation of the patient, analysis of test results and completion of medical decision making process will be conducted by an additional ED providers. TRAVEL OUTSIDE OF THE [place] IN LAST 30 DAYS: No - Related Data Allergies/Adverse Reactions: No Known Allergies Allergy (Verified 08/23/18 08:28) Past Medical History - Past Medical History Cardiac Medical History: Reports: Hx Hypertension, Hx Peripheral Vascular Disease Neurological Medical History: Reports: Hx Migraine - 5 years, Hx Seizures Endocrine Medical History: Reports: Hx Diabetes Mellitus Type 2 Renal/ Medical History: Denies: Hx Peritoneal Dialysis Musculoskeltal Medical History: Reports Hx Musculoskeletal Deformity, Reports Hx Musculoskeletal Trauma Past Surgical History: Reports: Hx Gynecologic Surgery - partial hysterectomy (still have L ovary), Hx Hysterectomy, Hx Vascular Surgery - Vein surgery x2 left leg - Immunizations Immunizations up to date: Yes Hx Diphtheria, Pertussis, Tetanus Vaccination: Yes Physical Exam - Vital signs Vitals: Temp Pulse Resp BP Pulse Ox 98.4 F 85 20 168/115 H 97 02/22/19 16:47 02/22/19 16:47 02/22/19 16:47 02/22/19 16:47 02/22/19 16:47 Course - Vital Signs Vital signs: Temp Pulse Resp BP Pulse Ox 98.4 F 85 20 168/115 H 97 02/22/19 16:47 02/22/19 16:47 02/22/19 16:47 02/22/19 16:47 02/22/19 16:47 Doctor's Discharge - Discharge Referrals: CLAIR COELHO PA-C [Primary Care Provider] - Follow up as needed
[2019-02-22 18:16] LABS: APPEARANCE,URINE CLEAR; BILIRUBIN,URINE NEGATIVE (NEGATIVE); COLOR,URINE STRAW; GLUCOSE, URINE >=500 mg/dL (NEGATIVE); KETONES,URINE NEGATIVE (NEGATIVE); LEUKOCYTE ESTERASE,URINE NEGATIVE (NEGATIVE); NITRITE,URINE NEGATIVE (NEGATIVE); PROTEIN,URINE NEGATIVE (NEGATIVE); URINE SPECIFIC GRAVITY 1.028; UROBILINOGEN,URINE NEGATIVE mg/dL (<2.0)
[2019-02-22 18:29] LABS: ALBUMIN 3.9 g/dL (3.5-5.0); ALKALINE PHOSPHATASE 103 U/L (38-126); ANION GAP 8 (5-19); ASPARTATE AMINO TRANSFERASE 20 U/L (14-36); BILIRUBIN,DIRECT 0.1 mg/dL (0.0-0.4); BILIRUBIN,TOTAL 0.3 mg/dL (0.2-1.3); BLOOD UREA NITROGEN 16 mg/dL (7-20); CALCIUM 8.7 mg/dL (8.4-10.2); CARBON DIOXIDE 28 mmol/L (22-30); CHLORIDE 101 mmol/L (98-107); GLUCOSE 332 mg/dL (75-110); POTASSIUM 4.4 mmol/L (3.6-5.0); TOTAL PROTEIN 6.9 g/dL (6.3-8.2)
[2019-02-22 18:59] LABS: ABSOLUTE EOSINOPHILS # (AUTO) 0.1 10^3/uL (0.0-0.6); ABSOLUTE LYMPHOCYTES (AUTO) 1.8 10^3/uL (0.5-4.7); ABSOLUTE MONOCYTES (AUTO) 0.5 10^3/uL (0.1-1.4); ABSOLUTE NEUT (AUTO) 4.4 10^3/uL (1.7-8.2); BASOPHILS % (AUTO) 0.5 % (0-2); EOSINOPHILS % (AUTO) 1.2 % (0-6); HEMATOCRIT 43.8 % (36.0-47.0); HEMOGLOBIN 14.9 g/dL (12.0-15.5); LYMPHOCYTES % (AUTO) 26.5 % (13-45); MEAN CORPUSCULAR HEMOGLOBIN 30.2 pg (27.0-33.4); MEAN CORPUSCULAR HGB CONC 33.9 g/dL (32.0-36.0); MEAN CORPUSCULAR VOLUME 89 fl (80-97); PLATELET COUNT 229 10^3/uL (150-450); RED BLOOD COUNT 4.93 10^6/uL (3.72-5.28); RED CELL DISTRIBUTION WIDTH 13.3 % (11.5-14.0); SEGMENTED NEUTROPHILS % (AUTO) 64.8 % (42-78); TOTAL CELLS COUNTED % (AUTO) 100 %; WHITE BLOOD COUNT 6.7 10^3/uL (4.0-10.5)
--- NOTE | 2019-02-22 19:40 | RADIOLOGY REPORT (SQ) ---
EXAM DESCRIPTION: VENOUS UNILATERAL LOWER COMPLETED DATE/TIME: 02/22/2019 6:57 pm REASON FOR STUDY: pain posterior left lower leg COMPARISON: None. TECHNIQUE: Dynamic and static parks scale and color images acquired of the left leg venous system. Se lected spectral images acquired with additional compression and augmentation maneuvers. The contralat eral common femoral vein and saphenofemoral junction were also imaged. Images stored on PACS. LIMITATIONS: None. FINDINGS: COMMON FEMORAL: Normal phasicity, compression and augmentation. No visualized echogenic ma terial on parks scale. No defects on color images. FEMORAL: Normal compression and augmentation. No visualized echogenic material on parks scale. No defe cts on color images. POPLITEAL: Normal compression, augmentation. No visualized echogenic material on parks scale. No defec ts on color images. CALF VESSELS: Normal compression, augmentation. No visualized echogenic material on parks scale. No de fects on color images. GSV and SSV: Normal compression, augmentation. No visualized echogenic material on parks scale. No def ects on color images. ANY DEEP VENOUS INSUFFICIENCY: Not evaluated. ANY EVIDENCE OF POPLITEAL CYST: No. OTHER: No other significant finding. CONTRALATERAL COMMON FEMORAL VEIN AND SAPHENOFEMORAL JUNCTION: Normal phasicity, compression and augmentation. No visualized echogenic material on parks scale. No de fects on color images. IMPRESSION: NO EVIDENCE OF DVT OR SVT IN THE LEFT LEG. TECHNICAL DOCUMENTATION: JOB ID: [id number] [employer]- All Rights Reserved Reading location - IP/workstation name: [email or web address]
== END 2019-02-22 22:02 | disposition left against medical advice (07) ==
LOC: ER 16:02
DX: M79.605 Pain in left leg (principal); I10 Essential (primary) hypertension; E11.9 Type 2 diabetes mellitus without complications; Z90.710 Acquired absence of both cervix and uterus
CPT/HCPCS: 36415; 80053; 81001; 83735; 85025; 93971

== ENCOUNTER 2019-06-21 22:32 | Emergency (ER) | payer BC ==
--- NOTE | 2019-06-22 00:38 | ER Document Report ---
ED Medical Screen (RME) - General Chief Complaint: Leg Pain Stated Complaint: FEET AND LEG PAIN Primary Care Provider: CLAIR COELHO PA-C [Primary Care Provider] - Follow up as needed Notes: Patient is a 43-year-old white female with past medical history of obesity, hypertension and diabetes who presents to the emergency department with a chief complaint of pain in the bilateral lower extremities and feet that began earlier today. States they feel cold and tingly. She admits to history of peripheral vascular disease. Denies smoking, history of blood clots or any recent extended periods of immobilization. She does not use hormone replacement therapies, had no chest pain or shortness of breath. No hemoptysis. Denies any fever. I have treated and performed a rapid initial assessment of this patient. A comprehensive ED assessment and evaluation of the patient, analysis of test results and completion of medical decision making process will be conducted by additional ED providers. PHYSICAL EXAMINATION: GENERAL: Well-appearing, well-nourished and in no acute distress. A&Ox4. Answers questions appropriately. TRAVEL OUTSIDE OF THE [place] IN LAST 30 DAYS: No - Related Data Allergies/Adverse Reactions: No Known Allergies Allergy (Verified 06/22/19 00:31) Home Medications: DM MEDS. HTN MEDS. Past Medical History - Social History Frequency of alcohol use: None Drug Abuse: None - Past Medical History Cardiac Medical History: Reports: Hx Hypertension, Hx Peripheral Vascular Disease Neurological Medical History: Reports: Hx Migraine - 5 years, Hx Seizures Endocrine Medical History: Reports: Hx Diabetes Mellitus Type 2 Renal/ Medical History: Denies: Hx Peritoneal Dialysis Musculoskeltal Medical History: Reports Hx Musculoskeletal Deformity, Reports Hx Musculoskeletal Trauma Past Surgical History: Reports: Hx Gynecologic Surgery - partial hysterectomy (still have L ovary), Hx Hysterectomy, Hx Vascular Surgery - Vein surgery x2 left leg - Immunizations Immunizations up to date: Yes Hx Diphtheria, Pertussis, Tetanus Vaccination: Yes Physical Exam - Vital signs Vitals: Temp Pulse Resp BP Pulse Ox 100.2 F 118 H 20 157/111 H 96 06/21/19 23:18 06/21/19 23:18 06/21/19 23:18 06/21/19 23:18 06/21/19 23:18 Course - Vital Signs Vital signs: Temp Pulse Resp BP Pulse Ox 100.2 F 118 H 20 157/111 H 96 06/21/19 23:18 06/21/19 23:18 06/21/19 23:18 06/21/19 23:18 06/21/19 23:18 Doctor's Discharge - Discharge Referrals: CLAIR COELHO PA-C [Primary Care Provider] - Follow up as needed
[2019-06-22] MEDS ORDERED: KETOROLAC TROMETHAMINE 60 MG/2 ML SDV IM ONE (01:02)
[2019-06-22 01:50] LABS: ABSOLUTE LYMPHOCYTES (AUTO) 1.6 10^3/uL (0.5-4.7); ABSOLUTE MONOCYTES (AUTO) 0.7 10^3/uL (0.1-1.4); ABSOLUTE NEUT (AUTO) 6.2 10^3/uL (1.7-8.2); BASOPHILS % (AUTO) 0.4 % (0-2); EOSINOPHILS % (AUTO) 0.3 % (0-6); HEMATOCRIT 44.2 % (36.0-47.0); HEMOGLOBIN 15.5 g/dL (12.0-15.5); LYMPHOCYTES % (AUTO) 18.8 % (13-45); MEAN CORPUSCULAR HEMOGLOBIN 31.3 pg (27.0-33.4); MEAN CORPUSCULAR HGB CONC 35.2 g/dL (32.0-36.0); MEAN CORPUSCULAR VOLUME 89 fl (80-97); MONOCYTES % (AUTO) 7.7 % (3-13); PLATELET COUNT 229 10^3/uL (150-450); RED BLOOD COUNT 4.96 10^6/uL (3.72-5.28); RED CELL DISTRIBUTION WIDTH 13.1 % (11.5-14.0); SEGMENTED NEUTROPHILS % (AUTO) 72.8 % (42-78); TOTAL CELLS COUNTED % (AUTO) 100 %; WHITE BLOOD COUNT 8.5 10^3/uL (4.0-10.5)
[2019-06-22 02:09] LABS: ALBUMIN 3.9 g/dL (3.5-5.0); ALKALINE PHOSPHATASE 106 U/L (38-126); ANION GAP 9 (5-19); ASPARTATE AMINO TRANSFERASE 17 U/L (14-36); BILIRUBIN,TOTAL 0.4 mg/dL (0.2-1.3); BLOOD UREA NITROGEN 17 mg/dL (7-20); CALCIUM 9.1 mg/dL (8.4-10.2); CARBON DIOXIDE 27 mmol/L (22-30); CHLORIDE 99 mmol/L (98-107); GLUCOSE 322 mg/dL (75-110); POTASSIUM 4.4 mmol/L (3.6-5.0); TOTAL PROTEIN 6.5 g/dL (6.3-8.2)
[2019-06-22 06:41] LABS: CREATINE KINASE 59 U/L (30-135)
--- NOTE | 2019-06-22 06:57 | ER Document Report ---
Entered by MATIAS CARVALHO SCRIBE 06/22/19 0638 Acting as scribe for:LARISA KNIGHT MD ED Extremity Problem, Lower - General Chief Complaint: Leg Pain Stated Complaint: FEET AND LEG PAIN Time Seen by Provider: 06/22/19 06:17 Primary Care Provider: CLAIR COELHO PA-C [Primary Care Provider] - Follow up as needed Mode of Arrival: Ambulatory Information source: Patient Notes: This 43 year old female patient presents to the emergency department today with complaints of "freezing and leg pain". Patient states that both of her feet feel cold and like they are "getting stabbed with ice picks". Patient is on pain management. Patient was sound asleep upon entry into the room and immediately after being woken up she requests pain medication. TRAVEL OUTSIDE OF THE [place] IN LAST 30 DAYS: No - Related Data Allergies/Adverse Reactions: No Known Allergies Allergy (Verified 06/22/19 00:31) Home Medications: DM MEDS. HTN MEDS. Past Medical History - General Information source: Patient - Social History Smoking Status: Never Smoker Cigarette use (# per day): No Frequency of alcohol use: None Drug Abuse: None Lives with: Family Family History: Reviewed & Not Pertinent, CAD, DM, Hypertension, Other - No family history of aneurysms Patient has suicidal ideation: No Patient has homicidal ideation: No - Past Medical History Cardiac Medical History: Reports: Hx Hypertension, Hx Peripheral Vascular Disease Neurological Medical History: Reports: Hx Migraine - 5 years, Hx Seizures Endocrine Medical History: Reports: Hx Diabetes Mellitus Type 2 Musculoskeletal Medical History: Reports Hx Musculoskeletal Deformity, Reports Hx Musculoskeletal Trauma Past Surgical History: Reports: Hx Hysterectomy, Hx Vascular Surgery - Vein surgery x2 left leg - Immunizations Immunizations up to date: Yes Hx Diphtheria, Pertussis, Tetanus Vaccination: Yes Hx Pneumococcal Vaccination: 05/09/14 Review of Systems - Review of Systems Constitutional: No symptoms reported EENT: No symptoms reported Cardiovascular: No symptoms reported Respiratory: No symptoms reported Gastrointestinal: No symptoms reported Genitourinary: No symptoms reported Female Genitourinary: No symptoms reported Musculoskeletal: See HPI, Other - bilateral leg pain Skin: No symptoms reported Hematologic/Lymphatic: No symptoms reported Neurological/Psychological: No symptoms reported -: Yes All other systems reviewed and negative Physical Exam - Vital signs Vitals: Temp Pulse Resp BP Pulse Ox 100.2 F 118 H 20 157/111 H 96 06/21/19 23:18 06/21/19 23:18 06/21/19 23:18 06/21/19 23:18 06/21/19 23:18 - Notes Notes: Physical Exam: General: Alert, sound asleep upon entry into room, immediately requests pain medication after being awoken. HEENT: Normocephalic. Atraumatic. PERRL. Extraocular movements intact. Oropharynx clear. Neck: Supple. Non-tender. Respiratory: No respiratory distress. Clear and equal breath sounds bilaterally. Cardiovascular: Regular rate and rhythm. Abdominal: Morbidly obese. Non-tender. No distension. Normal Bowel Sounds. Back: No gross abnormalities. Extremities: Moves all four extremities. Upper extremities: Normal inspection. Normal ROM. Lower extremities: No edema. Normal ROM. Brisk capillary refill in all toes bilaterally, 2+ palpable DP pulses bilaterally. Chronic venous stasis changes bilaterally, chronic hyper pigmentation of left lower extremity. Neurological: Normal cognition. AAOx4. Normal speech. Psychological: Normal affect. Normal Mood. Skin: Warm. Dry. Normal color. Course - Vital Signs Vital signs: Temp Pulse Resp BP Pulse Ox 97.9 F 83 18 149/100 H 99 06/22/19 07:04 06/22/19 07:04 06/22/19 07:04 06/22/19 07:04 06/22/19 07:04 - Laboratory Result Diagrams: 06/22/19 01:05 06/22/19 01:05 Laboratory results interpreted by me: 06/22/19 06/22/19 01:05 01:05 Sodium 134.7 L Glucose 322 H Hemoglobin A1c % 10.0 H Discharge - Discharge Clinical Impression: Chronic pain of lower extremity, bilateral, Diabetic peripheral neuropathy associated with type 2 diabetes mellitus, Poorly controlled diabetes mellitus Condition: Stable Disposition: HOME, SELF-CARE Additional Instructions: Your chronic leg pain is most likely made worse by diabetic peripheral neuropathy. Your diabetes is not very well controlled. Your hemoglobin A1c was 10.0 today. You should follow-up with your primary care provider in the next several days to discuss how to better manage your diabetes and help control your leg pain. RETURN TO THE EMERGENCY ROOM IF ANY NEW OR WORSENING SYMPTOMS. Referrals: CLAIR COELHO PA-C [Primary Care Provider] - Follow up as needed Scribe Attestation: 06/22/19 07:13 I personally performed the services described in the documentation, reviewed and edited the documentation which was dictated to the scribe in my presence, and it accurately records my words and actions. I personally performed the services described in the documentation, reviewed and edited the documentation which was dictated to the scribe in my presence, and it accurately records my words and actions.
[2019-06-22 08:40] VITALS: BP 147/100
== END 2019-06-22 08:10 | disposition home or self-care (01) ==
LOC: ER 22:32
DX: E11.42 Type 2 diabetes mellitus with diabetic polyneuropathy (principal); E11.51 Type 2 diabetes mellitus with diabetic peripheral angiopathy without gangrene; E11.65 Type 2 diabetes mellitus with hyperglycemia; M79.604 Pain in right leg; M79.605 Pain in left leg; G89.29 Other chronic pain; I10 Essential (primary) hypertension; Z79.899 Other long term (current) drug therapy
CPT/HCPCS: 99283; 96372; 36415; 82550; 85025; 80053; 83036; 85379; J1885

== ENCOUNTER 2019-08-27 17:31 | Emergency (ER) | payer BC ==
--- NOTE | 2019-08-27 17:55 | ER Document Report ---
ED Medical Screen (RME) - General Chief Complaint: Abdominal Pain Stated Complaint: ABDOMINAL PAIN Time Seen by Provider: 08/27/19 17:41 Primary Care Provider: CLAIR COELHO PA-C [Primary Care Provider] - Follow up as needed Mode of Arrival: Ambulatory Information source: Patient Notes: 43-year-old female presented to ED for complaint of left flank pain that started this morning. She states that the last time she had similar symptoms that she was diagnosed with constipation but she is having regular bowel movements and has had 2 medium size soft stools today. She states she is on metformin and she goes regularly. She states the pain started this morning and is gotten progressively worse. She states she does have a history of high blood pressure diabetes and varicose veins. She states she has had a hysterectomy. She states she is on Lasix and it does have urinary urgency but does not have frequency or burning. Patient does have trouble over trouble blood pressure the lowest I got was 142/111. I have greeted and performed a rapid initial assessment of this patient. A comprehensive ED assessment and evaluation of the patient, analysis of test results and completion of medical decision making process will be conducted by an additional ED providers. TRAVEL OUTSIDE OF THE [place] IN LAST 30 DAYS: No - Related Data Allergies/Adverse Reactions: No Known Allergies Allergy (Verified 08/27/19 17:54) Past Medical History - Past Medical History Cardiac Medical History: Reports: Hx Hypertension, Hx Peripheral Vascular Disease Neurological Medical History: Reports: Hx Migraine - 5 years, Hx Seizures Endocrine Medical History: Reports: Hx Diabetes Mellitus Type 2 Renal/ Medical History: Denies: Hx Peritoneal Dialysis Musculoskeltal Medical History: Reports Hx Musculoskeletal Deformity, Reports Hx Musculoskeletal Trauma Past Surgical History: Reports: Hx Gynecologic Surgery - partial hysterectomy (still have L ovary), Hx Hysterectomy, Hx Vascular Surgery - Vein surgery x2 left leg - Immunizations Immunizations up to date: Yes Hx Diphtheria, Pertussis, Tetanus Vaccination: Yes Doctor's Discharge - Discharge Referrals: CLAIR COELHO PA-C [Primary Care Provider] - Follow up as needed
[2019-08-27 18:21] LABS: ABSOLUTE BASOPHILS # (AUTO) 0.1 10^3/uL (0.0-0.2); ABSOLUTE EOSINOPHILS # (AUTO) 0.1 10^3/uL (0.0-0.6); ABSOLUTE LYMPHOCYTES (AUTO) 2.3 10^3/uL (0.5-4.7); ABSOLUTE MONOCYTES (AUTO) 0.5 10^3/uL (0.1-1.4); BASOPHILS % (AUTO) 0.7 % (0-2); EOSINOPHILS % (AUTO) 0.9 % (0-6); HEMATOCRIT 45.9 % (36.0-47.0); HEMOGLOBIN 16.2 g/dL (12.0-15.5); LYMPHOCYTES % (AUTO) 29.2 % (13-45); MEAN CORPUSCULAR HEMOGLOBIN 31.5 pg (27.0-33.4); MEAN CORPUSCULAR HGB CONC 35.2 g/dL (32.0-36.0); MEAN CORPUSCULAR VOLUME 89 fl (80-97); MONOCYTES % (AUTO) 6.6 % (3-13); PLATELET COUNT 227 10^3/uL (150-450); RED BLOOD COUNT 5.14 10^6/uL (3.72-5.28); RED CELL DISTRIBUTION WIDTH 13.5 % (11.5-14.0); SEGMENTED NEUTROPHILS % (AUTO) 62.6 % (42-78); TOTAL CELLS COUNTED % (AUTO) 100 %; WHITE BLOOD COUNT 8.1 10^3/uL (4.0-10.5)
[2019-08-27 18:28] LABS: APPEARANCE,URINE CLEAR; BILIRUBIN,URINE NEGATIVE (NEGATIVE); COLOR,URINE YELLOW; GLUCOSE, URINE >=500 mg/dL (NEGATIVE); KETONES,URINE TRACE mg/dL (NEGATIVE); PROTEIN,URINE 30 mg/dL (NEGATIVE); URINE SPECIFIC GRAVITY 1.028; UROBILINOGEN,URINE NEGATIVE mg/dL (<2.0)
[2019-08-27 18:43] LABS: ALBUMIN 3.9 g/dL (3.5-5.0); ALKALINE PHOSPHATASE 109 U/L (38-126); ANION GAP 7 (5-19); ASPARTATE AMINO TRANSFERASE 27 U/L (14-36); BILIRUBIN,TOTAL 0.3 mg/dL (0.2-1.3); BLOOD UREA NITROGEN 15 mg/dL (7-20); CALCIUM 9.1 mg/dL (8.4-10.2); CARBON DIOXIDE 28 mmol/L (22-30); CHLORIDE 100 mmol/L (98-107); GLUCOSE 338 mg/dL (75-110); POTASSIUM 4.1 mmol/L (3.6-5.0); TOTAL PROTEIN 6.8 g/dL (6.3-8.2)
--- NOTE | 2019-08-27 18:43 | RADIOLOGY REPORT (SQ) ---
EXAM DESCRIPTION: CT ABD/PELVIS NO ORAL OR IV IMAGES COMPLETED DATE/TIME: 08/27/2019 6:26 pm REASON FOR STUDY: Left flank pain/hysterectomy COMPARISON: 2018 TECHNIQUE: CT scan of the abdomen and pelvis performed without intravenous or oral contrast. Images reviewed with lung, soft tissue, and bone windows. Reconstructed coronal and sagittal MPR images revi ewed. All images stored on PACS. All CT scanners at this facility use dose modulation, iterative reconstruction, and/or weight based d osing when appropriate to reduce radiation dose to as low as reasonably achievable (ALARA). [facility]: Dose Right [facility]: CareDose [facility]: Dose Right [facility]: Teradose 4D [facility]: Smart [employer] RADIATION DOSE: CT Rad equipment meets quality standard of care and radiation dose reduction techniq ues were employed. CTDIvol: 19.2 mGy. DLP: 1157 mGy-cm.mGy. LIMITATIONS: None. FINDINGS: LOWER CHEST: No significant findings. No nodules or infiltrates. NON-CONTRASTED LIVER, SPLEEN, ADRENALS: Steatosis suspected. No focal suspicious liver findings. Sp lilo adrenals unremarkable. PANCREAS: No masses. No peripancreatic inflammatory changes. GALLBLADDER: Contracted. RIGHT KIDNEY AND URETER: No solid masses. No significant calcification. No hydronephrosis or hydroure ter. LEFT KIDNEY AND URETER: No solid masses. No significant calcification. No hydronephrosis or hydrouret er. AORTA AND RETROPERITONEUM: No aneurysm. No retroperitoneal masses or adenopathy. BOWEL AND PERITONEAL CAVITY: No obvious masses or inflammatory changes. No free fluid. APPENDIX: Normal. PELVIS, BLADDER, AND ABDOMINAL WALL:No abnormal masses. No free fluid. Bladder normal. BONES: No significant findings. OTHER: No other significant finding. IMPRESSION: 1. No acute or suspicious abdominopelvic abnormality. Specifically, no evidence of urinary tract sto castro or obstruction. TECHNICAL DOCUMENTATION: JOB ID: [id number] Quality ID # [id number]: Final reports with documentation of one or more dose reduction techniques (e.g., Au tomated exposure control, adjustment of the mA and/or kV according to patient size, use of iterative reconstruction technique) 2010 [employer]- All Rights Reserved Reading location - IP/workstation name: [email or web address]
[2019-08-27] MEDS ORDERED: HYDROCODONE/ACETAMINOPHEN 5-325 MG TABLET PO ONE (19:48)
--- NOTE | 2019-08-27 20:03 | ER Document Report ---
ED General - General Chief Complaint: Abdominal Pain Stated Complaint: ABDOMINAL PAIN Time Seen by Provider: 08/27/19 17:41 Primary Care Provider: CLAIR COELHO PA-C [Primary Care Provider] - Follow up as needed Mode of Arrival: Ambulatory Information source: Patient TRAVEL OUTSIDE OF THE [place] IN LAST 30 DAYS: No - HPI Notes: Patient presents with left lower quadrant pain. She states this started this morning has been constant. Is moderate in intensity. It is a sharp sensation radiation the left lower quadrant to the left flank. She states it appears to get worse when she drinks. She denies any vaginal symptoms. And states she is not worried about a 60 transmitted disease. She states she has had a hysterectomy in her right ovary removed but still has her left ovary. She also states this pain feels similar to when she had constipation but she has been having normal bowel movements. She denies any vomiting or diarrhea. - Related Data Allergies/Adverse Reactions: No Known Allergies Allergy (Verified 08/27/19 17:54) Past Medical History - General Information source: Patient - Social History Smoking Status: Never Smoker Chew tobacco use (# tins/day): No Frequency of alcohol use: None Drug Abuse: None Family History: Reviewed & Not Pertinent, CAD, DM, Hypertension, Other - No family history of aneurysms Patient has suicidal ideation: No Patient has homicidal ideation: No - Past Medical History Cardiac Medical History: Reports: Hx Hypertension, Hx Peripheral Vascular Disease Neurological Medical History: Reports: Hx Migraine - 5 years, Hx Seizures Endocrine Medical History: Reports: Hx Diabetes Mellitus Type 2 Renal/ Medical History: Denies: Hx Peritoneal Dialysis Musculoskeletal Medical History: Reports Hx Musculoskeletal Deformity, Reports Hx Musculoskeletal Trauma Past Surgical History: Reports: Hx Gynecologic Surgery - partial hysterectomy (still have L ovary), Hx Hysterectomy, Hx Vascular Surgery - Vein surgery x2 left leg - Immunizations Immunizations up to date: Yes Hx Diphtheria, Pertussis, Tetanus Vaccination: Yes Hx Pneumococcal Vaccination: 05/09/14 Review of Systems - Review of Systems Constitutional: denies: Chills, Fever Cardiovascular: denies: Chest pain, Palpitations Respiratory: denies: Cough, Short of breath -: Yes All other systems reviewed and negative Physical Exam - Vital signs Vitals: BP 142/111 H 08/27/19 17:56 Interpretation: Hypertensive - General General appearance: Appears well, Alert - HEENT Head: Normocephalic, Atraumatic Eyes: Normal Pupils: PERRL - Respiratory Respiratory status: No respiratory distress Chest status: Nontender Breath sounds: Normal Chest palpation: Normal - Cardiovascular Rhythm: Regular Heart sounds: Normal auscultation Murmur: No - Abdominal Inspection: Normal Distension: No distension Bowel sounds: Normal Tenderness: Tender - llq. No: Guarding, Rebound Organomegaly: No organomegaly - Back Back: Normal, Nontender - Extremities General upper extremity: Normal inspection, Nontender, Normal color, Normal ROM, Normal temperature General lower extremity: Normal inspection, Nontender, Normal color, Normal ROM, Normal temperature, Normal weight bearing. No: Danuta's sign - Neurological Neuro grossly intact: Yes Cognition: Normal Orientation: AAOx4 Leona Coma Scale Eye Opening: Spontaneous [place] Coma Scale Verbal: Oriented [place] Coma Scale Motor: Obeys Commands Leona Coma Scale Total: 15 Speech: Normal Motor strength normal: LUE, RUE, LLE, RLE Sensory: Normal - Psychological Associated symptoms: Normal affect, Normal mood - Skin Skin Temperature: Warm Skin Moisture: Dry Skin Color: Normal Course - Re-evaluation Re-evalutation: 08/27/19 21:23 Patient presents with left lower quadrant abdominal pain. There is no evidence of kidney stone. No evidence of ovarian torsion or pathology. No evidence of diverticulitis. At this time I am going to send the patient home with pain medication and have her follow-up with her primary care physician. - Vital Signs Vital signs: Temp Pulse Resp BP Pulse Ox 142/111 H 08/27/19 17:56 - Laboratory Result Diagrams: 08/27/19 18:05 08/27/19 18:05 Laboratory results interpreted by me: 08/27/19 08/27/19 08/27/19 18:05 18:05 18:05 Hgb 16.2 H Sodium 134.6 L Glucose 338 H Urine Protein 30 H Urine Glucose (UA) >=500 H Urine Ketones TRACE H Urine Blood SMALL H - Diagnostic Test Radiology reviewed: Reports reviewed Discharge - Discharge Clinical Impression: Left lower quadrant abdominal pain Condition: Stable Disposition: HOME, SELF-CARE Instructions: Abdominal Pain ([facility]) Additional Instructions: Please call your primary doctor as soon as possible to arrange for a recheck. Prescriptions: Hydrocodone/Acetaminophen [[place] 5-325 mg Tablet] 1 tab PO Q6 PRN 3 Days #12 tablet PRN Reason: Forms: Return to Work Referrals: CLAIR COELHO PA-C [Primary Care Provider] - Follow up tomorrow
--- NOTE | 2019-08-27 21:19 | RADIOLOGY REPORT (SQ) ---
US PELVIS EXAM DATE: 08/27/2019 7:49 PM CDT HISTORY: Post hysterectomy and right oophorectomy. Left lower quadrant pain. COMPARISON: CT scan from earlier the same day. TECHNIQUE: Grayscale, color Doppler, and spectral Doppler ultrasound images of the pelvis were obtained. FINDINGS: Patient is status post hysterectomy and right oophorectomy. The left ovary was not visualized. There is a likely 0.8 x 0.5 x 1.0 cm lymph node. No mass or fluid collection is seen. IMPRESSION: Left ovary not seen.
[2019-08-27 21:46] VITALS: BP 183/117
--- NOTE | 2019-08-27 22:47 | EKG REPORT ---
SEVERITY:- BORDERLINE ECG - SINUS RHYTHM LVH BY VOLTAGE BORDERLINE T ABNORMALITIES, INFERIOR LEADS : Confirmed by: Elly Richter 27-Aug-2019 22:46:05
== END 2019-08-27 21:46 | disposition home or self-care (01) ==
LOC: ER 17:31
DX: R10.32 Left lower quadrant pain (principal); I10 Essential (primary) hypertension; E11.51 Type 2 diabetes mellitus with diabetic peripheral angiopathy without gangrene; Z90.721 Acquired absence of ovaries, unilateral; Z90.711 Acquired absence of uterus with remaining cervical stump; Z87.19 Personal history of other diseases of the digestive system
CPT/HCPCS: 36415; 74176; 76856; 80053; 81001; 85025; 93005; 93010; 93976; 99284